=== PATIENT | female | born 1960 | race Caucasian/White ===

== ENCOUNTER 2018-12-28 18:18 | Emergency (ER) | payer OTHER ==
[~2018-12-28] VITALS: Ht 160 cm; Wt 61.2 kg
[~2018-12-28 18:18] MED LIST: ALBU.083IS IH; ALBU90OI INH; ALBU90OI6 INH; AMOX500 PO; ASPI325 PO; ASPI81CH PO; CARV6.25 PO; CEPH500 PO; CRUTCH4 XX; DOXY100 PO; ENTRESTO 24 MG1 EACH; FLUT220OIA; FURO40 PO; HYDACE5 PO; HYDR1TAB94 PO; IBUP200; IBUP400 PO; IBUP600 PO; LOSA50 PO; Norco 5-325 Ta1 EACH PO; OXYACE5T PO; POTCHL10ER PO; Robaxin-750750 MG PO; SPIR25 PO; Ventolin Soln3 ML INH
[2018-12-28] MEDS ORDERED: ALBU90OI61 INH (18:28)
[2018-12-28] MEDS ORDERED: Norco 5-325 Ta1 EACH PO (18:34)
[2018-12-28] MEDS ORDERED: Indomethacin50 MG PO (18:34)
== END 2018-12-28 18:48 | disposition home or self-care (01) ==
LOC: ER 18:18
DX: M10.9 Gout, unspecified (principal); I50.9 Heart failure, unspecified; F17.210 Nicotine dependence, cigarettes, uncomplicated; Z79.899 Other long term (current) drug therapy; Z79.82 Long term (current) use of aspirin
CPT/HCPCS: 99283

== ENCOUNTER 2020-08-02 14:49 | Observation (INO) | payer OTHER ==
[~2020-08-02] VITALS: Ht 160 cm; Wt 60.2 kg
[~2020-08-02 14:49] MED LIST changes: +ALBU90OI61 INH; -ASPI325 PO; +Aspirin EC81 MG PO; +CARV3.125 PO; -CARV6.25 PO; -ENTRESTO 24 MG1 EACH; +ENTRESTO 24 MG1 EACH PO; +Indomethacin50 MG PO
[2020-08-02 15:30] LABS: BASOPHILS ABSOLUTE AUTO 0.06 K/mm3 (0.00-0.23); BASOPHILS PERCENT AUTO 1 % (0-2); EOSINOPHILS ABSOLUTE AUTO 0.21 K/mm3 (0.00-0.68); EOSINOPHILS PERCENT AUTO 3 % (0-6); Hematocrit 43.8 % (33.0-51.0); Hemoglobin 14.4 g/dL (11.5-16.0); IMMATURE GRAN ABSOLUTE AUTO 0.01 K/mm3 (0.00-0.10); IMMATURE GRAN PERCENT AUTO 0 % (0-1); LYMPHOCYTES ABSOLUTE AUTO 2.37 K/mm3 (0.84-5.20); LYMPHOCYTES PERCENT AUTO 39 % (21-46); MONOCYTES ABSOLUTE AUTO 0.65 K/mm3 (0.16-1.47); MONOCYTES PERCENT AUTO 11 % (4-13); Mean Corpuscular HGB 29.8 pg (26.0-34.0); Mean Corpuscular HGB Conc 32.9 g/dL (31.5-36.5); Mean Corpuscular Volume 91 fL (80-100); Mean Platelet Volume 9.8 fL (9.1-12.4); NEUTROPHILS ABSOLUTE AUTO 2.85 K/mm3 (1.96-9.15); NEUTROPHILS PERCENT AUTO 46 % (41-73); Platelet Count 548 K/mm3 (150-400); RDW Coefficient Variation 12.9 % (11.7-14.2); RDW Standard Deviation 42.3 fL (35.1-46.3); Red Blood Cell Count 4.84 M/mm3 (3.80-5.20); White Blood Cell Count 6.15 K/mm3 (4.00-11.30)
[2020-08-02 15:44] LABS: Alanine Aminotransfer (ALT/SGP 37 U/L (12-78); Albumin, Blood 2.8 g/dL (3.4-5.0); Albumin/Globulin Ratio 0.7 (0.8-1.8); Alk Phos 134 U/L (50-136); Anion Gap 8 mmol/L (6-16); Aspartate Aminotrans (AST/SGOT 30 U/L (12-37); Bilirubin, Total 0.2 mg/dL (0.1-1.0); Blood Urea Nitrogen 46 mg/dL (8-24); CO2, Blood 27 mmol/L (21-32); Calcium, Blood 8.4 mg/dL (8.5-10.1); Chloride, Blood 104 mmol/L (98-108); Creatinine, Blood 1.64 mg/dL (0.40-1.00); Globulin, Blood 3.9 g/dL (2.2-4.0); Glomerular Filtration Rate 34 (60-); Glucose, Blood 117 mg/dL (70-99); Potassium, Blood 4.6 mmol/L (3.5-5.5); Sodium, Blood 139 mmol/L (136-145); Total Protein, Blood 6.7 g/dL (6.4-8.2); Troponin I <0.015 ng/mL (0.000-0.040)
[2020-08-02] MEDS ORDERED: LISI5 PO ×2 (15:54→20:20)
[2020-08-02] MEDS ORDERED: ATOR20 PO (15:55)
[2020-08-02] MEDS ORDERED: NITR.4SL SL (15:56)
[2020-08-02 20:23] LABS: U Amphetamine Screen DETECTED; U Barbituate Screen Not Detected; U Benzodiazapine Screen Not Detected; U Buprenorphine Screen Not Detected; U Cannabinoids Screen Not Detected; U Cocaine Screen Not Detected; U Methadone Screen Not Detected; U Methamphetamine Screen DETECTED; U Opiates Screen DETECTED; U Oxycodone Screen Not Detected; U Phencyclidine Screen Not Detected; U Propoxyphene Screen Not Detected
--- NOTE | 2020-08-03 05:51 | NUR ---
SHIFT SUMMARY PT A&O; PT'S SON AT BEDSIDE START OF SHIFT; EDUCATION PROVIDED REGARDING VISITOR GUIDELINES; BP SOFT BUT STABLE; NSR W/ INVERTED T WAVE NOTED ON TELE; DENIES CHEST PAIN; O2 SATS >93 ON RA; INDEPENDENT IN ROOM; PT EDUCATED ON FALL RISK AND CALL LIGHT; NUMEROUS SNACKS ABOUT ROOM; PT APPEARS RESTLESS AND FIGGETY; ANSWERING APPROPRIATELY; PO FLUIDS AND SNACKS BROUGHT TO PT PRN; PT DENIES NEEDS AT THIS TIME; CALL LIGHT IN REACH; BED IN LOWEST POSITION; WILL CONTINUE TO MONITOR CLOSELY UNTIL HAND OFF TO DAY SHIFT RN.
--- NOTE | 2020-08-03 11:53 | NUR ---
echocardiogram completed
--- NOTE | 2020-08-03 14:19 | NUR ---
JOE STARTED. IN THE PROCESS DR. PARISI CANCELLED THE TEST. TO DO ANGIOGRAM DUE TO EF 25%.
--- NOTE | 2020-08-03 14:46 | NUR ---
UPDATE IN THE ROOM TO SPEAK WITH THE PT ABOUT ECHO RESULTS & WHY THE STRESS TEST WAS NOT COMPLETED. PT WAS ALSO INFORMED OF THE PLAN TO TAKE HER TO THE SHEET METAL FABRICATOR IN THE AM. PT IS AWAKE, ALERT & ORIENTED AT THIS TIME. CONSENT FORM WAS LEFT AT THE BED SIDE FOR THE PT TO READ. PT HAS NO QUESTIONS OR NEEDS AT THIS TIME. SHE WOULD LIKE TO SPEAK WITH HER SON REGARDING THE PROCEDURE. PT WILL BE NPO AFTER MIDNIGHT.
--- NOTE | 2020-08-03 18:15 | NUR ---
SUMMARY NO ACUTE CHANGES NOTED THROUGH THE DAY. PT HAS DENIED ANY CP/PRESSURE, VSS, REMAINS ON RA. PT HAD AN ECHO W/CONTRAST DONE PER CARDIOLOGY. SHE WILL BE NPO AFTER MIDNIGHT, PLANNED ANGIO IN THE AM. PT IS TOLERATING PO INTAKE, VOIDING WNL. STAND BY ASSIST DUE TO UNSTEADY GAIT. PT IS ANXIOUS AND IS STARTING TO SHOW MILD SIGNS OF POSSIBLE WITHDRAWL. BED ALARM IS ON FOR SAFETY. PT EDUCATED ON USE OF CALL LIGHT. WCTM & REPORT TO NOC RN. FAMILY AT THE BEDSIDE, CALL LIGHT IN REACH.
[2020-08-04 04:52] LABS: Bun/Creatinine Ratio 29.5 (12.0-20.0); Calcium, Blood 8.1 mg/dL (8.5-10.1); Creatinine, Blood 1.29 mg/dL (0.40-1.00); Potassium, Blood 4.8 mmol/L (3.5-5.5)
--- NOTE | 2020-08-04 06:49 | NUR ---
SHIFT SUMMARY PT A&O; RESTLESS; VSS; NSR NOTED ON TELE; O2 SATS >93 ON RA; SON AT BEDSIDE START OF SHIFT; PT TOOK SHOWER AND WAS VERY WEEPY; SAT ON SHOWER CHAIR CRYING; STATED SHE MISSED HER ; CALL LIGHT IN REACH; BED IN LOWEST POSITION; WILL CONTINUE TO MONITOR UNTIL HAND OFF TO DAY SHIFT RN.
--- NOTE | 2020-08-04 09:08 | NUR ---
MANAGER DATABASE ADMINISTRATION PT TO MANAGER DATABASE ADMINISTRATION. AWAKE,ALERT & ORIENTED.VSS, RESP UNLABORED
[2020-08-04] MEDS ORDERED: ACET325 PO (13:13)
[2020-08-04] MEDS ORDERED: Nicoderm Cq1 EAC1 TOP (13:13)
--- NOTE | 2020-08-04 15:59 | NUR ---
DISCHARGE PT DISCHARGED TO HOME WITH HER SON, PT EDUCATION PROVIDED, VSS, ON RA, PT IS ON RA, RESP UNLABORED, PT DENIED THE NEED FOR A HOME O2 EVALUATION, HER SON AT REQUESTED ONE EARLIER IN THE DAY, CHF/HF,CARDIOMYOPATHY EDUCATION WAS PROVIDED TO THEM BOTH, UNDERSTANDING WAS STATED, PT WAS ENC TO F/U ANDREW FOR ANY PROBLEMS OR CONCERNS. TEGADERM DRSG PLACED TO RIGHT RADIAL ANGIO SITE, NO S/S OF HEMATOMA,BRUISING, OR PAIN NOTED, CIRC WNL. ARM BOARD IN PLACE. PT TAKEN TO PRIVATE VEHICLE BY HER SON PER HER CHOICE.
== END 2020-08-04 15:42 | disposition home or self-care (01) ==
LOC: ER 14:49 → PCU 14:50 → ENPENDDIS 08-04 12:33 → PCU 08-04 15:42
PROVIDERS: Internal Medicine; Physician Assistant; ADMIT Family Medicine
PROC: B201YZZ Plain Radiography of Multiple Coronary Arteries using Other Contrast (ICD-10-PCS; principal; 2020-08-04)
PROC: B206YZZ Plain Radiography of Right and Left Heart using Other Contrast (ICD-10-PCS; principal; 2020-08-04)
PROC: 4A023N8 Measurement of Cardiac Sampling and Pressure, Bilateral, Percutaneous Approach (ICD-10-PCS; principal; 2020-08-04)
DX: R07.9 Chest pain, unspecified (principal); R55 Syncope and collapse; I25.10 Atherosclerotic heart disease of native coronary artery without angina pectoris; I27.20 Pulmonary hypertension, unspecified; I13.0 Hypertensive heart and chronic kidney disease with heart failure and stage 1 through stage 4 chronic kidney disease, or unspecified chronic kidney disease; I50.9 Heart failure, unspecified; N18.9 Chronic kidney disease, unspecified; I95.9 Hypotension, unspecified; I34.0 Nonrheumatic mitral (valve) insufficiency; F15.90 Other stimulant use, unspecified, uncomplicated; F32.9 Major depressive disorder, single episode, unspecified; F17.210 Nicotine dependence, cigarettes, uncomplicated; Z71.6 Tobacco abuse counseling; D47.3 Essential (hemorrhagic) thrombocythemia; M10.9 Gout, unspecified; Z79.82 Long term (current) use of aspirin; Z79.899 Other long term (current) drug therapy; F11.90 Opioid use, unspecified, uncomplicated; I42.0 Dilated cardiomyopathy; N17.9 Acute kidney failure, unspecified
CPT/HCPCS: 36415; 71045; 76937; 78451; 80048; 80053; 83605; 84484; 85025; 85347; 87040; 93005; 93010; 93460; 96360; 99152; 99153; 99285-25; A9270-GY; A9500; C1769; C1894; C8929; G0378; J0280; J1644; J2250; J2785; J3010; J7030; J7050; Q9957; Q9967

== ENCOUNTER 2021-11-23 04:44 | Inpatient (IN) | payer OTHER ==
[~2021-11-23] VITALS: Ht 160 cm; Wt 64.9 kg
[~2021-11-23 04:44] MED LIST changes: +ACET325 PO; +ATOR40TA PO; -CARV3.125 PO; +CARV6.25 PO; +LISI5 PO; +NITR.4SL SL; +Nicoderm Cq1 EAC1 TOP
[2021-11-23 05:03] LABS: BASOPHILS ABSOLUTE AUTO 0.07 K/mm3 (0.00-0.23); BASOPHILS PERCENT AUTO 1 % (0-2); EOSINOPHILS ABSOLUTE AUTO 0.25 K/mm3 (0.00-0.68); EOSINOPHILS PERCENT AUTO 3 % (0-6); Hematocrit 31.8 % (33.0-51.0); Hemoglobin 10.4 g/dL (11.5-16.0); IMMATURE GRAN ABSOLUTE AUTO 0.02 K/mm3 (0.00-0.10); IMMATURE GRAN PERCENT AUTO 0 % (0-1); LYMPHOCYTES ABSOLUTE AUTO 1.57 K/mm3 (0.84-5.20); LYMPHOCYTES PERCENT AUTO 17 % (21-46); MONOCYTES ABSOLUTE AUTO 0.69 K/mm3 (0.16-1.47); MONOCYTES PERCENT AUTO 7 % (4-13); Mean Corpuscular HGB 30.3 pg (26.0-34.0); Mean Corpuscular HGB Conc 32.7 g/dL (31.5-36.5); Mean Corpuscular Volume 93 fL (80-100); NEUTROPHILS PERCENT AUTO 72 % (41-73); Platelet Count 393 K/mm3 (150-400); RDW Coefficient Variation 12.2 % (11.7-14.2); RDW Standard Deviation 41.4 fL (35.1-46.3); Red Blood Cell Count 3.43 M/mm3 (3.80-5.20)
[2021-11-23 05:25] LABS: Alanine Aminotransfer (ALT/SGP 41 U/L (12-78); Albumin, Blood 2.1 g/dL (3.4-5.0); Albumin/Globulin Ratio 0.5 (0.8-1.8); Alk Phos 204 U/L (50-136); Anion Gap 8 mmol/L (6-16); Aspartate Aminotrans (AST/SGOT 43 U/L (12-37); Bilirubin, Total 0.2 mg/dL (0.1-1.0); Blood Urea Nitrogen 54 mg/dL (8-24); Bun/Creatinine Ratio 19.4 (12.0-20.0); CO2, Blood 24 mmol/L (21-32); Calcium, Blood 8.2 mg/dL (8.5-10.1); Chloride, Blood 108 mmol/L (98-108); Creatinine, Blood 2.79 mg/dL (0.40-1.00); Globulin, Blood 4.5 g/dL (2.2-4.0); Glomerular Filtration Rate 17 (60-); Glucose, Blood 106 mg/dL (70-99); Potassium, Blood 4.9 mmol/L (3.5-5.5); Sodium, Blood 140 mmol/L (136-145); Total Protein, Blood 6.6 g/dL (6.4-8.2); Troponin I <0.015 ng/mL (0.000-0.040)
[2021-11-23 06:42] LABS: Influenza A, PCR NEGATIVE (NEGATIVE); Influenza B, PCR NEGATIVE (NEGATIVE); Resp Syncytial Virus, PCR NEGATIVE (NEGATIVE); SARS-Cov-2 (COVID-19) PCR, MMC NEGATIVE (NEGATIVE)
--- NOTE | 2021-11-23 14:22 | NUR ---
PT ARRIVED TO THE MEDICAL FLOOR FROM THE ER VIA GURGENA. Anam/OX3, COOPERATIVE. THE PT WAS ORIENTED TO THE ROOM LAYOUT AND CALL SYSTEM. PT IS HIGHLY ANXIOUS AT THIS TIME WAS UP TO THE BATHROOM. STATES THAT SHE FEELS HER SKIN IS CRAWLING AND AT THIS TIME IS TAKEING A SHOWER
[2021-11-23] MEDS ORDERED: SPIRIVA RESPIMAT4 G2 INH (15:33)
[2021-11-23 16:20] LABS: Source, Urine Clean Catch
[2021-11-23 16:25] LABS: Appearance, Urine Hazy (Clear); Bilirubin, Urine Neg (Neg); Blood, Urine 5+ (Neg); Color, Urine Yellow (P-Yellow); Glucose Qualitative, Urine Neg (Neg); Ketones, Urine Neg (Neg); Leukocyte Esterase, Urine 3+ (Neg); Nitrite, Urine Neg (Neg); Protein, Urine 4+ (Neg); Urobilinogen, Urine NORM (Normal)
[2021-11-23 16:32] LABS: Red Blood Cells, Urine TNTC /hpf (0-2); White Blood Cells, Urine TNTC /hpf (0-5)
[2021-11-23 16:35] LABS: Squamous Epithelial Cells Few /hpf (Few)
[2021-11-23 16:37] LABS: Bacteria Many /hpf
[2021-11-23 16:39] LABS: U Amphetamine Screen DETECTED; U Barbituate Screen Not Detected; U Benzodiazapine Screen Not Detected; U Buprenorphine Screen Not Detected; U Cannabinoids Screen Not Detected; U Cocaine Screen Not Detected; U Methadone Screen Not Detected; U Methamphetamine Screen DETECTED; U Opiates Screen Not Detected; U Oxycodone Screen DETECTED; U Phencyclidine Screen Not Detected; U Propoxyphene Screen Not Detected
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
--- NOTE | 2021-11-23 17:25 | NUR ---
PT PULLED IV SAID SHE WANTED IN ANOTHER PLACE THEN BECAME HYSTERICAL WITH THE IV START. IV IS IN THE RIGHT FA AND HAS GOOD BLOOD RETURN.
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
== END 2021-11-24 02:25 | disposition left against medical advice (07) | DRG 193 ==
LOC: ER 04:44 → ERHOLD 06:02 → MEDS 13:50
PROVIDERS: Student in an Organized Health Care Education/Training Program; ADMIT Internal Medicine
PROC: 5A09357 Assistance with Respiratory Ventilation, Less than 24 Consecutive Hours, Continuous Positive Airway Pressure (ICD-10-PCS; principal; 2021-11-23)
DX: J18.9 Pneumonia, unspecified organism (principal); J96.01 Acute respiratory failure with hypoxia; J44.0 Chronic obstructive pulmonary disease with (acute) lower respiratory infection; J44.1 Chronic obstructive pulmonary disease with (acute) exacerbation; N17.9 Acute kidney failure, unspecified; I50.22 Chronic systolic (congestive) heart failure; Z20.822 Contact with and (suspected) exposure to COVID-19; M10.9 Gout, unspecified; N18.30 Chronic kidney disease, stage 3 unspecified; F15.10 Other stimulant abuse, uncomplicated; Z71.6 Tobacco abuse counseling; F17.210 Nicotine dependence, cigarettes, uncomplicated; Z79.82 Long term (current) use of aspirin; Z79.899 Other long term (current) drug therapy; Z90.89 Acquired absence of other organs; Z98.51 Tubal ligation status
CPT/HCPCS: 0241U; 36415; 71045; 80053; 81001; 83880; 84145; 84484; 85025; 85379; 87086; 93005; 93010; 94640; 94644; 94660; 94760; 96365; 96366; 96372; 99285-25; A9270; J0456; J0696; J1644; J1956; J2930; J7050

== ENCOUNTER 2021-11-24 23:56 | Inpatient (IN) | payer OTHER ==
[~2021-11-24] VITALS: Ht 160 cm; Wt 70.9 kg
[~2021-11-24 23:56] MED LIST changes: +SPIRIVA RESPIMAT4 G2 INH
[2021-11-25 00:34] LABS: BASOPHILS ABSOLUTE AUTO 0.04 K/mm3 (0.00-0.23); BASOPHILS PERCENT AUTO 0 % (0-2); EOSINOPHILS ABSOLUTE AUTO 0.01 K/mm3 (0.00-0.68); EOSINOPHILS PERCENT AUTO 0 % (0-6); Hematocrit 33.6 % (33.0-51.0); Hemoglobin 10.6 g/dL (11.5-16.0); IMMATURE GRAN ABSOLUTE AUTO 0.06 K/mm3 (0.00-0.10); IMMATURE GRAN PERCENT AUTO 0 % (0-1); LYMPHOCYTES ABSOLUTE AUTO 1.98 K/mm3 (0.84-5.20); LYMPHOCYTES PERCENT AUTO 12 % (21-46); MONOCYTES ABSOLUTE AUTO 1.56 K/mm3 (0.16-1.47); MONOCYTES PERCENT AUTO 9 % (4-13); Mean Corpuscular HGB 29.4 pg (26.0-34.0); Mean Corpuscular HGB Conc 31.5 g/dL (31.5-36.5); Mean Corpuscular Volume 93 fL (80-100); Mean Platelet Volume 10.1 fL (9.1-12.4); NEUTROPHILS ABSOLUTE AUTO 13.06 K/mm3 (1.96-9.15); NEUTROPHILS PERCENT AUTO 78 % (41-73); Platelet Count 500 K/mm3 (150-400); RDW Coefficient Variation 12.6 % (11.7-14.2); RDW Standard Deviation 43.6 fL (35.1-46.3); White Blood Cell Count 16.71 K/mm3 (4.00-11.30)
[2021-11-25 00:48] LABS: Bun/Creatinine Ratio 23.9 (12.0-20.0); Calcium, Blood 8.4 mg/dL (8.5-10.1); Creatinine, Blood 3.27 mg/dL (0.40-1.00); Potassium, Blood 5.2 mmol/L (3.5-5.5)
[2021-11-25 05:22] LABS: BASOPHILS ABSOLUTE AUTO 0.02 K/mm3 (0.00-0.23); BASOPHILS PERCENT AUTO 0 % (0-2); EOSINOPHILS PERCENT AUTO 0 % (0-6); Hematocrit 30.5 % (33.0-51.0); Hemoglobin 9.7 g/dL (11.5-16.0); IMMATURE GRAN ABSOLUTE AUTO 0.05 K/mm3 (0.00-0.10); IMMATURE GRAN PERCENT AUTO 0 % (0-1); LYMPHOCYTES ABSOLUTE AUTO 0.88 K/mm3 (0.84-5.20); LYMPHOCYTES PERCENT AUTO 8 % (21-46); MONOCYTES ABSOLUTE AUTO 1.14 K/mm3 (0.16-1.47); MONOCYTES PERCENT AUTO 10 % (4-13); Mean Corpuscular HGB 29.8 pg (26.0-34.0); Mean Corpuscular HGB Conc 31.8 g/dL (31.5-36.5); Mean Corpuscular Volume 94 fL (80-100); Mean Platelet Volume 10.2 fL (9.1-12.4); NEUTROPHILS ABSOLUTE AUTO 9.05 K/mm3 (1.96-9.15); NEUTROPHILS PERCENT AUTO 81 % (41-73); Platelet Count 388 K/mm3 (150-400); RDW Coefficient Variation 12.7 % (11.7-14.2); RDW Standard Deviation 43.9 fL (35.1-46.3); Red Blood Cell Count 3.26 M/mm3 (3.80-5.20); White Blood Cell Count 11.14 K/mm3 (4.00-11.30)
[2021-11-25 05:46] LABS: Albumin, Blood 2.1 g/dL (3.4-5.0); Albumin/Globulin Ratio 0.5 (0.8-1.8); Bilirubin, Total 0.2 mg/dL (0.1-1.0); Bun/Creatinine Ratio 22.9 (12.0-20.0); Calcium, Blood 8.1 mg/dL (8.5-10.1); Creatinine, Blood 3.15 mg/dL (0.40-1.00); Globulin, Blood 4.2 g/dL (2.2-4.0); Potassium, Blood 5.6 mmol/L (3.5-5.5); Total Protein, Blood 6.3 g/dL (6.4-8.2)
--- NOTE | 2021-11-25 06:09 | NUR ---
PT IS ALERT AND ORIENTED X4. DENIES PAIN. LUNGS ARE DIMINISHED WITH WHEEZING AND CRACKLES BILATERAL. HAS COUGH AND SPUTUM THIN AND WHITE STATED BY THE PT. SKIN IS CDI. VOIDED IN ER. 2L 02. UP AD ETHAN. LIVES WITH BROTHER IN LAW. IVF NS AT 100ML/HR. PT IS NOW SLEEPING. PT HAS BEEN CALM.
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
[2021-11-25 12:25] LABS: Source, Urine Catheter
[2021-11-25 12:58] LABS: Appearance, Urine Clear (Clear); Bilirubin, Urine Neg (Neg); Blood, Urine 5+ (Neg); Color, Urine Yellow (P-Yellow); Glucose Qualitative, Urine Neg (Neg); Ketones, Urine Neg (Neg); Leukocyte Esterase, Urine 3+ (Neg); Nitrite, Urine Neg (Neg); Protein, Urine 4+ (Neg); Urobilinogen, Urine NORM (Normal)
[2021-11-25 13:16] LABS: Bacteria Few /hpf; Red Blood Cells, Urine 25-50 /hpf (0-2); Squamous Epithelial Cells Few /hpf (Few)
[2021-11-25 13:17] LABS: Amorphous Mod (0-Heavy); Mucus Light (0-Heavy); Yeast/Fungi Urine Rare /hpf
[2021-11-25 14:12] LABS: Uric Acid, Blood 8.6 mg/dL (2.6-6.0)
--- NOTE | 2021-11-25 14:15 | NUR ---
PT'S DAUGHTER AT THE BEDSIDE FOR SUPPORT. SHE REQUESTED AN UPDATE FROM DR. WANG. DR. WANG WAS CONTACTED AND NOTIFIED THE DAUGHTER IS AT THE BEDSIDE. WILL CONTINUE TO MONITOR.
[2021-11-25 14:16] LABS: Thyroid Stimulating Hormone 0.373 uIU/mL (0.360-4.800)
--- NOTE | 2021-11-25 14:35 | NUR ---
DR. WANG AND SPOKE WITH PT AND DAUGHTER REGARDING PLAN OF CARE.
[2021-11-25 14:47] LABS: Bun/Creatinine Ratio 22.5 (12.0-20.0); Calcium, Blood 7.5 mg/dL (8.5-10.1); Creatinine, Blood 3.24 mg/dL (0.40-1.00); Potassium, Blood 6.3 mmol/L (3.5-5.5)
--- NOTE | 2021-11-25 16:52 | NUR ---
PT COMPLAINING OF RUQ ABD PAIN. WILL CONTINUE TO MONITOR.
--- NOTE | 2021-11-25 18:14 | NUR ---
SHIFT SUMMARY PT HAS BEEN A SBA WHEN OOB THIS SHIFT. SHE REMAINS ON 2LO2 VIA NC. SOME SHORTNESS OF BREATH WITH ACTIVITY. PT COMPLAINED OF RUQ PAIN X1 THIS EVENING, IT RESOLVED WITHOUT NEED FOR MEDICATION. PT'S DAUGHTER WAS AT THE BEDSIDE FOR SUPPORT. SHE ALSO REPORTED THAT PT USES HEROIN IN ADDITION TO METH AND REQUESTED SABOXONE FOR WITHDRAWAL SYMPTOMS; PLAN TO DISCUSS WITH DR. WANG AT THE NEXT OPPORTUNITY. WILL CONTINUE TO MONITOR UNTIL REPORT TO JUDY FRANK.
--- NOTE | 2021-11-26 03:48 | NUR ---
SUMMARY PT C/O ANXIETY TONIGHT AND REQUESTED XANAX, DR KEE GAVE ORDER FOR HYDROYZINE. HYDROXYZINE WAS GIVEN, AND PT VERB "SOME "IMPROVEMENT.PT ALLOWED ME TO PLACE SCDS BILAT CALF.SCHEDULED TO START LOVENOX IN AM.
[2021-11-26 04:45] LABS: BASOPHILS ABSOLUTE AUTO 0.01 K/mm3 (0.00-0.23); BASOPHILS PERCENT AUTO 0 % (0-2); EOSINOPHILS PERCENT AUTO 0 % (0-6); Hemoglobin 9.8 g/dL (11.5-16.0); IMMATURE GRAN ABSOLUTE AUTO 0.04 K/mm3 (0.00-0.10); IMMATURE GRAN PERCENT AUTO 0 % (0-1); LYMPHOCYTES ABSOLUTE AUTO 0.47 K/mm3 (0.84-5.20); LYMPHOCYTES PERCENT AUTO 5 % (21-46); MONOCYTES ABSOLUTE AUTO 0.17 K/mm3 (0.16-1.47); MONOCYTES PERCENT AUTO 2 % (4-13); Mean Corpuscular HGB 29.3 pg (26.0-34.0); Mean Corpuscular HGB Conc 31.6 g/dL (31.5-36.5); Mean Corpuscular Volume 93 fL (80-100); Mean Platelet Volume 10.6 fL (9.1-12.4); NEUTROPHILS PERCENT AUTO 93 % (41-73); Platelet Count 305 K/mm3 (150-400); RDW Coefficient Variation 12.7 % (11.7-14.2); RDW Standard Deviation 43.2 fL (35.1-46.3); Red Blood Cell Count 3.34 M/mm3 (3.80-5.20); White Blood Cell Count 10.19 K/mm3 (4.00-11.30)
[2021-11-26 05:50] LABS: Albumin, Blood 1.9 g/dL (3.4-5.0); Albumin/Globulin Ratio 0.5 (0.8-1.8); Bilirubin, Total 0.2 mg/dL (0.1-1.0); Bun/Creatinine Ratio 24.2 (12.0-20.0); Calcium, Blood 7.6 mg/dL (8.5-10.1); Creatinine, Blood 3.35 mg/dL (0.40-1.00); Globulin, Blood 3.8 g/dL (2.2-4.0); Total Protein, Blood 5.7 g/dL (6.4-8.2)
--- NOTE | 2021-11-26 07:47 | NUR ---
PT HAD CRITICAL POTASSIUM 6.0. CALLED DR KEE AND RECEIVED ORDERS. RAYRAY FRANK CALLED CALCIUM LEVEL.SEE ORDERS.MEDS GIVEN PER ORDERS.
[2021-11-26 12:23] LABS: Potassium, Blood 5.6 mmol/L (3.5-5.5)
--- NOTE | 2021-11-26 14:22 | NUR ---
PT IS RESTING IN BED AT THIS TIME. SHE APPEARS TO SLEEP MOST OF THE DAY. SPIRITUAL CARE IN TO SEE PT. DR. PEARL CONSULTED. WILL CONTINUE TO MONITOR.
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
--- NOTE | 2021-11-26 14:45 | NUR ---
SPOKE WITH PT'S DAUGHTER WITH PT PERMISSION.
--- NOTE | 2021-11-26 18:37 | NUR ---
SHIFT SUMMARY PT REMAINS IN THE HOSPITAL FOR ABX, SHE IS ALSO BEING SEEN BY DR. PEARL FOR ACUTE RENAL FAILURE. PT HAS RESTED MOST OF THE DAY, SHE REPORTS GETTING LIMITED SLEEP AT NIGHT R/T NIGHTMARES. IV FLUIDS STARTED PER DR. PEARL. PT IS TOLERATING A RENAL DIET. SHE IS A SBA WHILE IN THE ROOM AND SAT UP TO THE CHAIR SOME OF THE DAY. VSS. WILL MONITOR UNTIL NOC RN.
[2021-11-27 06:30] LABS: BASOPHILS ABSOLUTE AUTO 0.01 K/mm3 (0.00-0.23); BASOPHILS PERCENT AUTO 0 % (0-2); EOSINOPHILS PERCENT AUTO 0 % (0-6); Hematocrit 27.9 % (33.0-51.0); Hemoglobin 9.1 g/dL (11.5-16.0); IMMATURE GRAN ABSOLUTE AUTO 0.06 K/mm3 (0.00-0.10); IMMATURE GRAN PERCENT AUTO 1 % (0-1); LYMPHOCYTES ABSOLUTE AUTO 0.55 K/mm3 (0.84-5.20); LYMPHOCYTES PERCENT AUTO 5 % (21-46); MONOCYTES ABSOLUTE AUTO 0.36 K/mm3 (0.16-1.47); MONOCYTES PERCENT AUTO 3 % (4-13); Mean Corpuscular HGB 29.9 pg (26.0-34.0); Mean Corpuscular HGB Conc 32.6 g/dL (31.5-36.5); Mean Corpuscular Volume 92 fL (80-100); Mean Platelet Volume 10.5 fL (9.1-12.4); NEUTROPHILS ABSOLUTE AUTO 10.67 K/mm3 (1.96-9.15); NEUTROPHILS PERCENT AUTO 92 % (41-73); Platelet Count 365 K/mm3 (150-400); RDW Coefficient Variation 12.8 % (11.7-14.2); RDW Standard Deviation 42.8 fL (35.1-46.3); Red Blood Cell Count 3.04 M/mm3 (3.80-5.20); White Blood Cell Count 11.65 K/mm3 (4.00-11.30)
[2021-11-27 07:09] LABS: HBSAG SCREEN Negative (Negative); HEP A AB, IGM Negative (Negative); HEP B CORE AB, IGM Negative (Negative); HEP C VIRUS AB <0.1 (0.0-0.9)
[2021-11-27 07:23] LABS: Albumin/Globulin Ratio 0.5 (0.8-1.8); Bilirubin, Total 0.2 mg/dL (0.1-1.0); Bun/Creatinine Ratio 29.3 (12.0-20.0); Calcium, Blood 7.8 mg/dL (8.5-10.1); Creatinine, Blood 2.9 mg/dL (0.40-1.00); Globulin, Blood 3.8 g/dL (2.2-4.0); Magnesium, Blood 1.9 mg/dL (1.6-2.4); Phosphorus, Blood 5.5 mg/dL (2.5-4.9); Potassium, Blood 5.1 mmol/L (3.5-5.5); Total Protein, Blood 5.8 g/dL (6.4-8.2)
--- NOTE | 2021-11-27 08:38 | NUR ---
SUMMARY PT ANXIOUS TONIGHT.FIDGETY.FORGETFUL OF LINES AND HAYS. DAY RN AGREES TO QUESTION REGARDING CONTINUED HAYS DURING DR ROUNDING. POTASSIUM STABLE THIS AM.GAVE VISTARIL X 1 WHICH SEEMED TO CALM PT SOME.PT LAST BM 11/24 DOCUMENTE. DUE TO RENAL STATUS, UNABLE TO HAVE PRUNE JUICE AND PT ANXIOUS OVER NEED OF BM. DAY RN AGREES TO FOLLOW UP.
--- NOTE | 2021-11-27 17:14 | NUR ---
SHIFT SUMMARY PATIENT ALERT WHEN AWAKE. RESTED AND SLEPT MOST OF SHIFT. TOLERATING RENAL DIET AND FLUIDS. SAÚL MANCERA'Ade THIS SHIFT. VOIDING ON COMMODE. REPORTED HEART BURN AND HEADACHE. MEDICATED WITH PRILOSEC AND TYLENOL. NON-PRODUCTIVE COUGH, LUNGS DIM THROUGHOUT. IF FLUID RUNNING. WILL REPORT TO ALMOND GRINDER RN.
--- NOTE | 2021-11-28 04:23 | NUR ---
SHIFT SUMMARY PT A/O X4 BUT VERY SLEEPY THIS SHIFT, AND APPEARS AGGITATED WHEN AWAKE. STATES SHE IS HAVING A HARD TIME HAVING A BOWEL MOVEMENT, TREATED PER EMAR WITH STOOL SOFTENERS AND GIVEN PRUNE JUICE. AMBULATING WELL WITH STAND BY ASSIST. VOIDING WELL. VITAL SIGNS STABLE. CRACKLES IN LUNGS BILATERALLY, OXYGEN SATURATION MANTAINING WITH RA. WILL CONTINUE TO MONITOR AND REPORT TO ONCOMING RN.
[2021-11-28 04:53] LABS: Hematocrit 28.4 % (33.0-51.0); Hemoglobin 9.1 g/dL (11.5-16.0)
[2021-11-28 05:51] LABS: Anion Gap 13 mmol/L (6-16); Blood Urea Nitrogen 88 mg/dL (8-24); Bun/Creatinine Ratio 33.2 (12.0-20.0); CO2, Blood 17 mmol/L (21-32); Calcium, Blood 7.6 mg/dL (8.5-10.1); Chloride, Blood 108 mmol/L (98-108); Creatinine, Blood 2.65 mg/dL (0.40-1.00); Glomerular Filtration Rate 18 (60-); Glucose, Blood 212 mg/dL (70-99); Magnesium, Blood 1.9 mg/dL (1.6-2.4); Phosphorus, Blood 5.8 mg/dL (2.5-4.9); Potassium, Blood 5.2 mmol/L (3.5-5.5); Sodium, Blood 138 mmol/L (136-145)
[2021-11-28 08:48] LABS: Albumin/Globulin Ratio 0.6 (0.8-1.8); Bilirubin, Direct 0.1 mg/dL (0.0-0.3); Bilirubin, Indirect 0.1 mg/dL (0.1-0.7); Bilirubin, Total 0.2 mg/dL (0.1-1.0); Globulin, Blood 3.6 g/dL (2.2-4.0); Total Protein, Blood 5.6 g/dL (6.4-8.2)
--- NOTE | 2021-11-28 10:08 | NUR ---
0900 PT CURSING THIS RN ENTERS ROOM STATES SHE NEEDS AN ENEMA AND NO ONE IS LISTENING TO HER, DR PEARL IN ROOM AND ORDERS RECEIVED FOR BOWEL CARE
--- NOTE | 2021-11-28 11:56 | NUR ---
0950 PT LYING FLAT IN BED WITH EYES CLOSED. RESP RATE 18
--- NOTE | 2021-11-28 13:54 | NUR ---
1320 PT REMAINS IN SHOWER SINCE 1245 OPENED DOOR TO CHECK ON PATIENT, PATIENT ANSWERS QUESTIONS APPROPRIATELY AND STATES SHE IS FINE. PT HAS PURSE SITTING JUST OUTSIDE OF SHOWER
--- NOTE | 2021-11-28 13:55 | NUR ---
1340 PT REMAINS IN SHOWER, WHEN CHECKED ON PATIENT SHOWER IS RUNNING AND PATIENT IS SITTING ON TOILET DABBING NOSE WITH KLEENEX. PT STATES SHE IS FINE, DR WANG HERE TO SEE PATIENT AND SPOKE WITH PATIENT WHILE SHE WAS SITTING IN BATHROOM. PT THEN RETURNED TO BED AND DR WANG SPEAKING WITH PATIENT
--- NOTE | 2021-11-28 17:10 | NUR ---
PT DOZING THROUGHOUT AFTERNOON,DENIES SOB. PT HAS DECLINED FOOD TRAYS HAS BAG OF SNACKS WITH COOKIES, CHIPS AND POPCORN AT BEDSIDE AND HAD A FRIEND BRING IN A SECOND SACK OF SNACK FOOD. PT WITH FORMED FORMED STOOLS X3 AND REPORTS STOMACH FEELS MUCH BETTER.
[2021-11-29 05:06] LABS: BASOPHILS ABSOLUTE AUTO 0.01 K/mm3 (0.00-0.23); BASOPHILS PERCENT AUTO 0 % (0-2); EOSINOPHILS PERCENT AUTO 0 % (0-6); Hematocrit 29.7 % (33.0-51.0); Hemoglobin 9.7 g/dL (11.5-16.0); IMMATURE GRAN ABSOLUTE AUTO 0.17 K/mm3 (0.00-0.10); IMMATURE GRAN PERCENT AUTO 2 % (0-1); LYMPHOCYTES ABSOLUTE AUTO 0.79 K/mm3 (0.84-5.20); LYMPHOCYTES PERCENT AUTO 8 % (21-46); MONOCYTES PERCENT AUTO 5 % (4-13); Mean Corpuscular HGB 29.8 pg (26.0-34.0); Mean Corpuscular HGB Conc 32.7 g/dL (31.5-36.5); Mean Corpuscular Volume 91 fL (80-100); Mean Platelet Volume 10.9 fL (9.1-12.4); NEUTROPHILS ABSOLUTE AUTO 8.18 K/mm3 (1.96-9.15); NEUTROPHILS PERCENT AUTO 85 % (41-73); NRBC ABSOLUTE 0.02 K/mm3 (0.00-0.02); NRBC Auto 0.2 /100 WBC (0.0-0.2); Platelet Count 380 K/mm3 (150-400); RDW Coefficient Variation 13.2 % (11.7-14.2); RDW Standard Deviation 43.8 fL (35.1-46.3); Red Blood Cell Count 3.26 M/mm3 (3.80-5.20); White Blood Cell Count 9.65 K/mm3 (4.00-11.30)
[2021-11-29 06:08] LABS: Albumin, Blood 2.1 g/dL (3.4-5.0); Albumin/Globulin Ratio 0.6 (0.8-1.8); Bilirubin, Total 0.2 mg/dL (0.1-1.0); Bun/Creatinine Ratio 35.6 (12.0-20.0); Calcium, Blood 7.8 mg/dL (8.5-10.1); Creatinine, Blood 2.78 mg/dL (0.40-1.00); Globulin, Blood 3.6 g/dL (2.2-4.0); Potassium, Blood 6.1 mmol/L (3.5-5.5); Total Protein, Blood 5.7 g/dL (6.4-8.2)
--- NOTE | 2021-11-29 07:24 | NUR ---
LAB CALLED WITH ELEVATED K LEVEL, DR PEARL NOTIFIED. THE ORDERED BUMEX 2MG IV, SODIUM BICARB 1 AMP ALL X1 AND RECHECK POTASSIUM LEVEL IN 2 HRS POST TREATMENT. ALL ORDERS NOTED, CALL PLACED TO LAB TO COME CHECK BLOOD POTASSIUM LEVEL IN 2HRS. PT MADE AWARE OF CONDITION AND TREATMENT.
--- NOTE | 2021-11-29 12:01 | NUR ---
PATIENT LEFT THE FLOOR AT APPROXIMATELY 1100 TODAY TO GET FRESH AIR. PATIENT INSTRUCTED SHE WAS NOT TO SMOKE SHE HAS A NICOTINE PATCH ON, SHE VERBALIZED UNDERSTANDING. PATIENT WAS SEEN EXITING THE BUILDING IN WHEELCHAIR BY MECHANICAL APPLICATIONS ENGINEER. THIS NURSE AND CHARGE WENT LOOKING FOR PATIENT. NOTIFIED OPHTHALMIC AIDE AND SECURITY, THEY ARE LOOKING ON CAMERAS.
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
[2021-11-29] MEDS ORDERED: SODBIC650 PO (13:15)
[2021-11-29] MEDS ORDERED: VISBIOME 112.51 EACH PO (13:16)
[2021-11-29] MEDS ORDERED: LEVO750 PO (13:17)
[2021-11-29] MEDS ORDERED: LOKELMA (13:19)
--- NOTE | 2021-11-29 13:28 | NUR ---
DISCHARGE: DISCHARGE INSTUCTIONS GIVEN TO PATIENT AT THIS TIME. INSTUCTED PATIENT TO FOLLOW UP WITH DR PEARL TOMORROW, APPOINTMENT IS SET. FOLLOW UP WITH PCP IN ON WEEK. PRESCRIPTIONS SENT TO [facility] WITH CONFIRMATION RECIEVED. INSTUCTED PATIENT TO NOT DO DRUGS THIS IS HURTING HER HEART/LIVER/KIDNEYS. PATIENT VERBALIZED UNDERSTANDING OF DISCHARGE INSTRUCTIONS. NO SIGNS OR SYMPTOMS ACUTE DISTRESS NOTED.
== END 2021-11-29 13:46 | disposition home or self-care (01) | DRG 871 ==
LOC: ER 23:56 → SURS 23:57 → MEDS 23:57 → SURS 11-25 04:35
PROVIDERS: Family Medicine; Internal Medicine; Internal Medicine Nephrology; Student in an Organized Health Care Education/Training Program; ADMIT Internal Medicine
DX: A41.9 Sepsis, unspecified organism (principal); J18.9 Pneumonia, unspecified organism; J96.01 Acute respiratory failure with hypoxia; N17.9 Acute kidney failure, unspecified; J44.1 Chronic obstructive pulmonary disease with (acute) exacerbation; I50.22 Chronic systolic (congestive) heart failure; N18.4 Chronic kidney disease, stage 4 (severe); E87.2 Acidosis; J44.0 Chronic obstructive pulmonary disease with (acute) lower respiratory infection; E87.5 Hyperkalemia; R94.5 Abnormal results of liver function studies; Z71.51 Drug abuse counseling and surveillance of drug abuser; Z98.51 Tubal ligation status; Z98.890 Other specified postprocedural states; F17.210 Nicotine dependence, cigarettes, uncomplicated; F15.10 Other stimulant abuse, uncomplicated; F11.10 Opioid abuse, uncomplicated; F12.10 Cannabis abuse, uncomplicated; Z79.899 Other long term (current) drug therapy; Z79.82 Long term (current) use of aspirin; D64.9 Anemia, unspecified; M10.9 Gout, unspecified; R65.20 Severe sepsis without septic shock; F41.9 Anxiety disorder, unspecified; E88.09 Other disorders of plasma-protein metabolism, not elsewhere classified; Z53.29 Procedure and treatment not carried out because of patient's decision for other reasons
CPT/HCPCS: 36415; 71045; 71250; 74176; 76700; 80048; 80053; 80069; 80074; 80076; 81001; 82248; 82374; 82947; 83605; 83735; 84100; 84132; 84443; 84550; 85014; 85018; 85025; 87040; 87086; 94640; 94760; 96372; 97110; 97116; 97161; 99285-25; A9270; G0378; G0480; J0610; J0881; J1650; J1815; J1940; J1956; J2930; J7030; J7120; Q0177

== ENCOUNTER → 2022-03-23 | Outpatient (CLI) | payer OTHER ==
[~2022-03-23] MED LIST changes: +LEVO750 PO; +LOKELMA; +SODBIC650 PO; +VISBIOME 112.51 EACH PO
[2022-03-23 19:36] LABS: Protein, Urine Quantitative 242.7 mg/dL (0.0-11.9)
== END | disposition home or self-care (01) ==
LOC: LAB 14:00 → LAB SHORT 14:00 → LAB FUT 02-03 11:15
PROVIDERS: Internal Medicine Nephrology
DX: N18.4 Chronic kidney disease, stage 4 (severe) (principal); D63.1 Anemia in chronic kidney disease; R76.9 Abnormal immunological finding in serum, unspecified; R94.5 Abnormal results of liver function studies; R94.6 Abnormal results of thyroid function studies
CPT/HCPCS: 81050; 82043; 82570; 84156

== ENCOUNTER 2022-10-07 16:31 | Inpatient (IN) | payer OTHER ==
[~2022-10-07] VITALS: Ht 170.2 cm; Wt 59.4 kg
[2022-10-07 16:54] LABS: Base Excess Venous -2.1 mmol/L; Bicarbonate Venous 21.7 mmol/L (24.0-30.0); PCO2 Venous 56.8 mmHg (38-42); pH Blood Venous 7.25 (7.34-7.37)
[2022-10-07 17:06] LABS: BASOPHILS ABSOLUTE AUTO 0.08 K/mm3 (0.00-0.23); BASOPHILS PERCENT AUTO 1 % (0-2); EOSINOPHILS ABSOLUTE AUTO 0.55 K/mm3 (0.00-0.68); EOSINOPHILS PERCENT AUTO 4 % (0-6); Hematocrit 40.4 % (33.0-51.0); Hemoglobin 13.1 g/dL (11.5-16.0); IMMATURE GRAN ABSOLUTE AUTO 0.03 K/mm3 (0.00-0.10); IMMATURE GRAN PERCENT AUTO 0 % (0-1); LYMPHOCYTES ABSOLUTE AUTO 3.54 K/mm3 (0.84-5.20); LYMPHOCYTES PERCENT AUTO 28 % (21-46); MONOCYTES ABSOLUTE AUTO 0.72 K/mm3 (0.16-1.47); MONOCYTES PERCENT AUTO 6 % (4-13); Mean Corpuscular HGB 29.8 pg (26.0-34.0); Mean Corpuscular HGB Conc 32.4 g/dL (31.5-36.5); Mean Corpuscular Volume 92 fL (80-100); Mean Platelet Volume 9.7 fL (9.1-12.4); NEUTROPHILS ABSOLUTE AUTO 7.61 K/mm3 (1.96-9.15); NEUTROPHILS PERCENT AUTO 61 % (41-73); Platelet Count 503 K/mm3 (150-400); RDW Coefficient Variation 12.7 % (11.7-14.2); RDW Standard Deviation 42.8 fL (35.1-46.3); White Blood Cell Count 12.53 K/mm3 (4.00-11.30)
[2022-10-07 17:17] LABS: Source, Urine Clean Catch
[2022-10-07 17:38] LABS: Appearance, Urine Cloudy (Clear); Bilirubin, Urine Neg (Neg); Blood, Urine 5+ (Neg); Color, Urine Yellow (P-Yellow); Glucose Qualitative, Urine Neg (Neg); Ketones, Urine Neg (Neg); Leukocyte Esterase, Urine 2+ (Neg); Nitrite, Urine Neg (Neg); Protein, Urine 4+ (Neg); Specific Gravity, Urine 1.015 (1.003-1.022); Urobilinogen, Urine NORM (Normal)
[2022-10-07 17:57] LABS: Albumin, Blood 2.9 g/dL (3.4-5.0); Albumin/Globulin Ratio 0.7 (0.8-1.8); Bilirubin, Total 0.4 mg/dL (0.1-1.0); Bun/Creatinine Ratio 24.2 (12.0-20.0); Calcium, Blood 9.2 mg/dL (8.5-10.1); Creatinine, Blood 1.53 mg/dL (0.40-1.00); Globulin, Blood 4.2 g/dL (2.2-4.0); Potassium, Blood 4.1 mmol/L (3.5-5.5); Total Protein, Blood 7.1 g/dL (6.4-8.2)
[2022-10-07 18:16] LABS: Granular Casts 0-2 /lpf (0)
[2022-10-07 18:17] LABS: Bacteria Few /hpf; Renal Epithelial Few /hpf (0-Rare); Squamous Epithelial Cells Mod /hpf (Few); White Blood Cells, Urine 25-50 /hpf (0-5)
[2022-10-07 18:19] LABS: Influenza A, PCR NEGATIVE (NEGATIVE); Influenza B, PCR NEGATIVE (NEGATIVE); Resp Syncytial Virus, PCR NEGATIVE (NEGATIVE); SARS-Cov-2 (COVID-19) PCR, MMC NEGATIVE (NEGATIVE)
[2022-10-07] MEDS ORDERED: LOSA25 PO (18:50)
[2022-10-07] MEDS ORDERED: CALC.25 PO (18:50)
[2022-10-07] MEDS ORDERED: BUME2 PO (18:50)
[2022-10-07 23:33] LABS: U Amphetamine Screen DETECTED; U Barbituate Screen Not Detected; U Benzodiazapine Screen Not Detected; U Buprenorphine Screen Not Detected; U Cannabinoids Screen DETECTED; U Cocaine Screen Not Detected; U Methadone Screen Not Detected; U Methamphetamine Screen DETECTED; U Opiates Screen DETECTED; U Oxycodone Screen Not Detected; U Phencyclidine Screen Not Detected; U Propoxyphene Screen Not Detected
--- NOTE | 2022-10-08 00:54 | NUR ---
TRANSFER NOTE/PATIENT UPDATE THIS RN RECEIVED REPORT VIA PHONE FROM JORGE LUIS FRANK IN THE ED. PATIENT TRANSFERRED TO ROOM 17 AT 2244. RT IN ROOM FOR TRANSFER DUE TO BIPAP. PATIENT'S O2 SATS >95% WITH 45%FIO2. AFEBRILE. BP STABLE. RR FLUCTUATING DEPENDING ON EXERTION; AT REST RR 20-22. PATIENT DENIES CHEST PAIN/PRESSURE. ABLE TO ASSIST WITH TURNING IN BED BUT IS NOTABLY WEAK. MARINE SURVEYOR DAMION NOTED ST DEPRESSION ON TELEMETRY THAT WAS NEW WHEN COMPARED TO PREVIOUS EKG. PRN EKG DONE PER PROTOCOL; T WAVE INVERSION NOTED; PROVIDER NOTIFIED WITH ORDERS FOR A STAT TROPONIN. TROPONIN DRAWN AND CAME BACK LOWER THAN PREVIOUS TROPONIN THAT WAS DRAWN AROUND 1999. NO FURTHER ORDERS AT THIS TIME. PATIENT WAS ABLE TO ANSWER QUESTIONS APPROPRIATELY BUT BECAME SOB WITH VERBALIZING MORE THAN 2-3 WORDS AT A TIME. PATIENT IS ALSO LETHARGIC AND QUICKLY FALLS BACK TO SLEEP DURING QUESTIONS/CARE. PATIENT VERBALIZED UNDERSTANDING OF WHY THE BIPAP IS NEEDED. PATIENT APPEARS TO BE RESTING AT THIS TIME. VITALS STABLE. BED IN LOWEST POSITION, BED ALARM ON, CALL LIGHT WITHIN REACH. FREQUENT CHECKS BY THIS RN FOR SAFETY. HAYS CATHETER PATENT AND DRAINING LIGHT YELLOW URINE. THIS RN WILL REVIEW CHART AND CONTINUE TO MONITOR AND PROVIDE INTERVENTIONS ORDERED/NEEDED.
[2022-10-08 03:49] LABS: Bicarbonate Venous 25.5 mmol/L (24.0-30.0); PCO2 Venous 36.4 mmHg (38-42); pH Blood Venous 7.45 (7.34-7.37)
[2022-10-08 04:16] LABS: BASOPHILS PERCENT AUTO 0 % (0-2); EOSINOPHILS PERCENT AUTO 0 % (0-6); Hematocrit 35.9 % (33.0-51.0); Hemoglobin 11.6 g/dL (11.5-16.0); IMMATURE GRAN ABSOLUTE AUTO 0.02 K/mm3 (0.00-0.10); IMMATURE GRAN PERCENT AUTO 0 % (0-1); LYMPHOCYTES PERCENT AUTO 8 % (21-46); MONOCYTES ABSOLUTE AUTO 0.04 K/mm3 (0.16-1.47); MONOCYTES PERCENT AUTO 1 % (4-13); Mean Corpuscular HGB 29.2 pg (26.0-34.0); Mean Corpuscular HGB Conc 32.3 g/dL (31.5-36.5); Mean Corpuscular Volume 90 fL (80-100); Mean Platelet Volume 9.7 fL (9.1-12.4); NEUTROPHILS ABSOLUTE AUTO 4.57 K/mm3 (1.96-9.15); NEUTROPHILS PERCENT AUTO 91 % (41-73); Platelet Count 345 K/mm3 (150-400); RDW Coefficient Variation 12.7 % (11.7-14.2); RDW Standard Deviation 42.2 fL (35.1-46.3); Red Blood Cell Count 3.97 M/mm3 (3.80-5.20); White Blood Cell Count 5.03 K/mm3 (4.00-11.30)
--- NOTE | 2022-10-08 04:23 | NUR ---
SHIFT SUMMARY PATIENT LETHARGIC AND ORIENTED X4. PATIENT COOPERATIVE WITH CARE BUT ANXIOUS/TEARFUL AT TIMES. PATIENT RESPONDS APPROPRIATELY TO QUESTIONS BUT QUICKLY FALLS BACK TO SLEEP. BIPAP REMAINED IN PLACE THROUGHOUT THIS SHIFT. PATIENT UNDERSTANDS THE NEED TO KEEP BIPAP ON. FIO2 DECREASED TO 25% WITH O2 SATS >94%. PATIENT DENIES CHEST PAIN/PRESSURE. BP STABLE. AFEBRILE. RR 17-20 WHILE RESTING. TACHYPNEA NOTED WITH EXERTION/ANXIETY. TEMP HAYS CATHETER PATENT AND DRAINING LIGHT YELLOW URINE TO GRAVITY. OCCASIONAL BODY JERKING/TWITCHING MOTIONS NOTED BY THIS RN. PATIENT ABLE TO REPOSITION SELF IN BED. PATIENT APPEARS TO BE RESTING AT THIS TIME WITH BED IN LOWEST POSITION, BED ALARM ON, AND CALL LIGHT WITHIN REACH. THIS RN WILL CONTINUE TO MONITOR UNTIL SHIFT CHANGE AT 0700.
[2022-10-08 04:43] LABS: Albumin, Blood 2.6 g/dL (3.4-5.0); Anion Gap 11 mmol/L (6-16); Blood Urea Nitrogen 39 mg/dL (8-24); Bun/Creatinine Ratio 26.2 (12.0-20.0); CO2, Blood 24 mmol/L (21-32); Chloride, Blood 104 mmol/L (98-108); Creatinine, Blood 1.49 mg/dL (0.40-1.00); Glomerular Filtration Rate 40 (60-); Glucose, Blood 142 mg/dL (70-99); Magnesium, Blood 2.2 mg/dL (1.6-2.4); Phosphorus, Blood 4.5 mg/dL (2.5-4.9); Potassium, Blood 4.4 mmol/L (3.5-5.5); Sodium, Blood 139 mmol/L (136-145)
--- NOTE | 2022-10-08 12:14 | NUR ---
"Spiritual Care | Pt. Request Pt. is awake in bed and welcomes my visit. Pt. is unsettled by the weight of loss in her life in the past year. Pt. displays evidence of despair. Listen empathetically with a calming presence. establish rapport. Pastoral bevreavement certified lactation counselor is given. Pt. is catharthic, and displays evidence of understanding. Prayed with Pt. Pt. verbalizes gratitude for the spiritual care visit."
--- NOTE | 2022-10-08 17:51 | NUR ---
SHIFT SUMMARY PT A/OX4 AND COOPERATIVE OF CARE. VSS THROUGHOUT SHIFT WITH O2 SATS >93% ON RA. PT REMOVED BIPAP AROUND 0700 AND REMAINED ON RA THE REST OF SHIFT. NO REPORT OF CHEST PAIN/PRESSURE THROUGHOUT SHIFT. NO REPORT OF SOB/DYSPNEA THROUGHOUT SHIFT. PT ANXIOUS AT BEGINNING OF SHIFT STATING "I WANT MY DAUGHTER" AND "I WANT TO GO HOME" MULTIPLE TIMES. PT HAD PERIODS OF CRYING JUST AFTER THE REMARKS. PT REMAINED IN HER BED DURING SHIFT, ABLE TO TURN HERSELF IN BED. PT HAS HAYS IN PLACE DRAINING TO GRAVITY, YELLOW URINE. PT RECIEVING DIURETICS PER EMAR. PT REPORTED SOME RESTLESSNESS STATING THAT IT IS "WITHDRAWALS FROM THE METH."
--- NOTE | 2022-10-09 04:55 | NUR ---
SHIFT SUMMARY PT A&Ox4, CALLS AND COMMUNICATES NEEDS APPROPRIATELY. VSS, SpO2> 92% RA, DENIES SOB. BP STABLE, SINUS 90's, DENIES CP/PRESSURE. PT WITH ANXIETY AT START OF SHIFT, ADMINISTERED PRN ATIVAN, PT RESPONDED WELL AND WAS ABLE TOREST COMFORTABLY THROUGHOUT THE SHIFT. HAYS CATHETER IN PLACE, PATENT, DRAINING TO GRAVITY. NO ACUTE EVENTS THIS SHIFT, WILL REPORT TO DAY SHIFT RN.
[2022-10-09] MEDS ORDERED: Nicoderm Cq1 EAC1 TOP (12:46)
--- NOTE | 2022-10-09 14:07 | NUR ---
discharge summary: Patient was discharged and wheeled out by pct, patient had complete understanding of medication record, needs of appointments, and status of chronic illness. patient understood discharge instruction completely with no other concerns or questions. Patient denies chest pain/pressure, or sob at rest. patient is in complete agreeance with plan of care. No concerns from this RN. telemetry and both iv's removed.
== END 2022-10-09 13:52 | disposition home or self-care (01) | DRG 917 ==
LOC: ER 16:31 → PCU 18:52 → ERHOLD 18:52 → PCU 22:45
PROVIDERS: Emergency Medicine; ADMIT Internal Medicine
PROC: 5A09357 Assistance with Respiratory Ventilation, Less than 24 Consecutive Hours, Continuous Positive Airway Pressure (ICD-10-PCS; principal; 2022-10-07)
DX: T43.651A Poisoning by methamphetamines accidental (unintentional), initial encounter (principal); G92.8 Other toxic encephalopathy; I50.23 Acute on chronic systolic (congestive) heart failure; J96.01 Acute respiratory failure with hypoxia; J96.02 Acute respiratory failure with hypercapnia; E87.3 Alkalosis; I42.8 Other cardiomyopathies; M10.9 Gout, unspecified; J44.9 Chronic obstructive pulmonary disease, unspecified; F17.210 Nicotine dependence, cigarettes, uncomplicated; F12.10 Cannabis abuse, uncomplicated; R82.81 Pyuria; F11.10 Opioid abuse, uncomplicated; N18.32 Chronic kidney disease, stage 3b; Z20.822 Contact with and (suspected) exposure to COVID-19; Z79.82 Long term (current) use of aspirin; Z79.51 Long term (current) use of inhaled steroids; Z79.899 Other long term (current) drug therapy; Z79.2 Long term (current) use of antibiotics; Z87.19 Personal history of other diseases of the digestive system; Z98.890 Other specified postprocedural states; Z98.51 Tubal ligation status; Z99.81 Dependence on supplemental oxygen
CPT/HCPCS: 0241U; 36415; 71045; 80053; 80069; 81001; 82803; 83605; 83735; 83880; 84145; 84484; 85025; 90686; 93005; 93010; 94640; 94644; 94660; 94664; 94762; A9270; C8929; J0696; J1650; J1940; J2405; Q9957

== ENCOUNTER 2023-03-29 14:39 | Emergency (ER) | payer OTHER ==
[~2023-03-29] VITALS: Ht 160 cm; Wt 59.0 kg
[~2023-03-29 14:39] MED LIST changes: +BUME2 PO; +CALC.25 PO; +LOSA25 PO
[2023-03-29 15:17] LABS: BASOPHILS ABSOLUTE AUTO 0.06 K/mm3 (0.00-0.23); BASOPHILS PERCENT AUTO 1 % (0-2); EOSINOPHILS PERCENT AUTO 4 % (0-6); Hematocrit 35.2 % (33.0-51.0); Hemoglobin 12.1 g/dL (11.5-16.0); IMMATURE GRAN ABSOLUTE AUTO 0.01 K/mm3 (0.00-0.10); IMMATURE GRAN PERCENT AUTO 0 % (0-1); LYMPHOCYTES ABSOLUTE AUTO 1.19 K/mm3 (0.84-5.20); LYMPHOCYTES PERCENT AUTO 18 % (21-46); MONOCYTES ABSOLUTE AUTO 0.57 K/mm3 (0.16-1.47); MONOCYTES PERCENT AUTO 8 % (4-13); Mean Corpuscular HGB 29.9 pg (26.0-34.0); Mean Corpuscular HGB Conc 34.4 g/dL (31.5-36.5); Mean Corpuscular Volume 87 fL (80-100); Mean Platelet Volume 9.6 fL (9.1-12.4); NEUTROPHILS ABSOLUTE AUTO 4.66 K/mm3 (1.96-9.15); NEUTROPHILS PERCENT AUTO 69 % (41-73); Platelet Count 342 K/mm3 (150-400); RDW Coefficient Variation 12.6 % (11.7-14.2); RDW Standard Deviation 40.4 fL (35.1-46.3); Red Blood Cell Count 4.05 M/mm3 (3.80-5.20); White Blood Cell Count 6.79 K/mm3 (4.00-11.30)
[2023-03-29 15:35] LABS: Albumin, Blood 2.9 g/dL (3.4-5.0); Albumin/Globulin Ratio 0.9 (0.8-1.8); Bilirubin, Total 0.4 mg/dL (0.1-1.0); Bun/Creatinine Ratio 21.1 (12.0-20.0); Calcium, Blood 8.5 mg/dL (8.5-10.1); Creatinine, Blood 1.28 mg/dL (0.40-1.00); Globulin, Blood 3.4 g/dL (2.2-4.0); Total Protein, Blood 6.3 g/dL (6.4-8.2)
[2023-03-29 17:23] VITALS: BP 137/68
== END 2023-03-29 17:30 | disposition left against medical advice (07) ==
LOC: ER 14:39
PROVIDERS: Emergency Medicine
DX: R07.89 Other chest pain (principal); R06.02 Shortness of breath; R05.9 Cough, unspecified; Z53.29 Procedure and treatment not carried out because of patient's decision for other reasons; F17.210 Nicotine dependence, cigarettes, uncomplicated; I50.9 Heart failure, unspecified; N18.30 Chronic kidney disease, stage 3 unspecified; M10.9 Gout, unspecified; J44.9 Chronic obstructive pulmonary disease, unspecified; Z79.899 Other long term (current) drug therapy
CPT/HCPCS: 71045; 80053; 83880; 84484; 85025; 85379; 93005; 93010

== ENCOUNTER 2023-10-29 13:45 | Inpatient (IN) | payer OTHER ==
[2023-10-29] VITALS (25 sets, daily range): BP systolic 71–125; BP diastolic 52–84
[~2023-10-29] VITALS: Ht 162.6 cm; Wt 52.3 kg
[2023-10-29 14:00] LABS: Calcium, Ionized (POC) 1.03 mmol/L (1.10-1.46); Chloride (POC) 104 mmol/L (98-108); Creatinine (POC) 1.4 mg/dL (0.6-1.0); Glucose (ISTAT POC) 186 mg/dL (70-99); Hemoglobin (POC) 16.3 g/dL (12.0-16.0); Potassium (POC) 3.5 mmol/L (3.5-5.5); Sodium (POC) 138 mmol/L (135-148); Total CO2 (POC) 21 mmol/L (21-32)
[2023-10-29 14:01] LABS: Base Excess Venous -15.8 mmol/L; Bicarbonate Venous 11.1 mmol/L (24.0-30.0); PCO2 Venous 84.3 mmHg (38-42)
[2023-10-29 14:02] LABS: pH Blood Venous 6.91 (7.34-7.37)
[2023-10-29 14:35] LABS: Albumin/Globulin Ratio 0.8 (0.8-1.8); Bilirubin, Total 0.3 mg/dL (0.1-1.0); Bun/Creatinine Ratio 16.2 (12.0-20.0); Calcium, Blood 8.6 mg/dL (8.5-10.1); Creatinine, Blood 1.36 mg/dL (0.40-1.00); Potassium, Blood 3.5 mmol/L (3.5-5.5)
[2023-10-29 14:39] LABS: Hematocrit 48.9 % (33.0-51.0); Hemoglobin 14.5 g/dL (11.5-16.0); Mean Corpuscular HGB Conc 29.7 g/dL (31.5-36.5); Mean Corpuscular Volume 101 fL (80-100); Mean Platelet Volume 10.4 fL (9.1-12.4); Platelet Count 307 K/mm3 (150-400); RDW Coefficient Variation 12.3 % (11.7-14.2); RDW Standard Deviation 46.2 fL (35.1-46.3); Red Blood Cell Count 4.84 M/mm3 (3.80-5.20); White Blood Cell Count 13.13 K/mm3 (4.00-11.30)
[2023-10-29 15:30] LABS: pH Blood Arterial 6.99 (7.35-7.45)
[2023-10-29 15:31] LABS: PCO2 Arterial 95.1 mmHg (35-45); PO2 Arterial 54.6 mmHg (80-100)
[2023-10-29 15:40] LABS: BASOPHILS PERCENT MAN 0 % (0-2); EOSINOPHILS ABSOLUTE MAN 0.52 K/mm3 (0.00-0.68); EOSINOPHILS PERCENT MAN 4 % (0-6); LYMPHOCYTES % ATYPICAL MANUAL 2 % (0-0); LYMPHOCYTES ABSOLUTE MAN 7.35 K/mm3 (0.84-5.20); LYMPHOCYTES PERCENT MAN 54 % (21-46); MONOCYTES ABSOLUTE MAN 0.78 K/mm3 (0.16-1.47); MONOCYTES PERCENT MAN 6 % (4-13); NEUTROPHILS ABSOLUTE MAN 4.46 K/mm3 (1.96-9.15); SEG NEUTROPHILS PERCENT MAN 34 % (41-73); TOTAL CELLS COUNTED 100
--- NOTE | 2023-10-29 18:01 | NUR ---
ADMIT PT ARRIVED TO ICU 5 AT 1640 VIA ER BED. PT ARRIVED ON VENT WITH RT AT BEDSIDE. VENT SETTINGS AC 24, TV 360, PEEP INCREASED TO 10, AND FIO2 100%. PT INITIALLY WITH SPO2 80'S. SPO2 SLOWLY INCREASED TO 90-91%. PT IS NOT SEDATED. PT DOES NOT WITHDRAW EXTREMITIES TO NOXIOUS STIMULI. NO COUGH OR GAG PRESENT. PT WITH SPONTANEOUS MOVEMENTS OF HEAD SIDE TO SIDE AND SHRUGS SHOULDERS. OGT IN PLACE, CLAMPED. IV'S IN PLACE WITH ZOSYN INFUSING. HAYS TEMP PROBE PLACED IN ER. NO URINE OUTPUT NOTED AT THIS TIME. PT WITH MOTTLING NOTED TO HANDS AND KNEES DOWN TO FEET. LIPS DUSKY. VITAL SIGNS STABLE AT THIS TIME. NO FAMILY AT BEDSIDE. IGNITION SOURCES FOUND IN PT BELONGINGS. WILL ATTEMPT TO SEND HOME WITH FAMILY. IF FAMILY UNABLE TO TAKE IGNITION SOURCES, WILL SEND TO SECURITY. WILL CONTINUE TO MONITOR AND REPORT OFF TO ONCOMING RN.
[2023-10-29 18:22] LABS: PCO2 Venous 48.3 mmHg (38-42); pH Blood Venous 7.13 (7.34-7.37)
[2023-10-29 18:23] LABS: Base Excess Venous -13.3 mmol/L; Bicarbonate Venous 14.3 mmol/L (24.0-30.0)
--- NOTE | 2023-10-29 18:56 | NUR ---
BELONGINGS: Patient's purse arrived with her form ED. Cigaret's and marijuana pipe visible in purse. Patient unable consent to search remaining items in purse or deny presence of ignition sources. Unable to contact family to take belongings home. Security refused to take belongings to their safe r/t size of purse. Entire purse placed in belongings bag and locked belongings cabinent in solid hold.
[2023-10-29 20:16] LABS: Adenovirus Not Detected (NOT DETECT); Bordetella pertussis Not Detected (NOT DETECT); Chlamydophila pneumoniae Not Detected (NOT DETECT); Coronavirus 229E Not Detected (NOT DETECT); Coronavirus HKU1 Not Detected (NOT DETECT); Coronavirus NL63 Not Detected (NOT DETECT); Coronavirus OC43 Not Detected (NOT DETECT); Human Metapneumovirus Not Detected (NOT DETECT); Human Rhinovirus/Enterovirus Detected (NOT DETECT); Influenza A/2009-H1 Not Detected (NOT DETECT); Influenza A/H1 Not Detected (NOT DETECT); Influenza A/H3 Not Detected (NOT DETECT); Influenza B Not Detected (NOT DETECT); Mycoplasma pneumoniae Not Detected (NOT DETECT); Parainfluenza Virus 1 Not Detected (NOT DETECT); Parainfluenza Virus 2 Not Detected (NOT DETECT); Parainfluenza Virus 3 Not Detected (NOT DETECT); Parainfluenza Virus 4 Not Detected (NOT DETECT); Respiratory Syncytial Virus Not Detected (NOT DETECT); SARS-Cov-2 (COVID-19), BioFire Not Detected (NOT DETECT)
[2023-10-29 20:56] LABS: Source, Urine Foley catheter
[2023-10-29 20:59] LABS: Bilirubin, Urine Neg (Neg); Blood, Urine 4+ (Neg); Glucose Qualitative, Urine Neg (Neg); Ketones, Urine Neg (Neg); Leukocyte Esterase, Urine Neg (Neg); Nitrite, Urine Neg (Neg); Protein, Urine 4+ (Neg); Specific Gravity, Urine 1.015 (1.003-1.022); Urobilinogen, Urine NORM (Normal)
[2023-10-29 21:04] LABS: U Amphetamine Screen DETECTED; U Barbituate Screen Not Detected; U Benzodiazapine Screen Not Detected; U Buprenorphine Screen Not Detected; U Cannabinoids Screen DETECTED; U Cocaine Screen Not Detected; U Methadone Screen Not Detected; U Methamphetamine Screen DETECTED; U Opiates Screen Not Detected; U Oxycodone Screen Not Detected; U Phencyclidine Screen Not Detected
[2023-10-29 21:05] LABS: Color, Urine Yellow (P-Yellow)
[2023-10-29 21:06] LABS: Appearance, Urine Hazy (Clear)
[2023-10-29 21:07] LABS: Bacteria Few /hpf; Squamous Epithelial Cells Mod /hpf (Few)
[2023-10-29 21:08] LABS: Amorphous Heavy (0-Heavy); Mucus Light (0-Heavy)
[2023-10-29 22:18] LABS: Base Excess Venous -8.6 mmol/L; Bicarbonate Venous 17.2 mmol/L (24.0-30.0); PCO2 Venous 54.7 mmHg (38-42)
[2023-10-29 22:19] LABS: pH Blood Venous 7.17 (7.34-7.37)
[2023-10-29 22:53] LABS: Albumin, Blood 2.3 g/dL (3.4-5.0); Anion Gap 12 mmol/L (6-16); Blood Urea Nitrogen 30 mg/dL (8-24); Bun/Creatinine Ratio 14.9 (12.0-20.0); CO2, Blood 22 mmol/L (21-32); Calcium, Blood 7.4 mg/dL (8.5-10.1); Chloride, Blood 107 mmol/L (98-108); Creatinine, Blood 2.02 mg/dL (0.40-1.00); Glomerular Filtration Rate 28 (60-); Glucose, Blood 151 mg/dL (70-99); Phosphorus, Blood 8.8 mg/dL (2.5-4.9); Potassium, Blood 4.3 mmol/L (3.5-5.5); Sodium, Blood 141 mmol/L (136-145)
[2023-10-30] VITALS (88 sets, daily range): BP systolic 85–124; BP diastolic 51–111
[2023-10-30 04:26] LABS: Base Excess Venous -6.6 mmol/L; Bicarbonate Venous 18.9 mmol/L (24.0-30.0)
[2023-10-30 04:27] LABS: pH Blood Venous 7.27 (7.34-7.37)
[2023-10-30 04:30] LABS: PCO2 Venous 44.8 mmHg (38-42)
[2023-10-30 04:32] LABS: BASOPHILS ABSOLUTE AUTO 0.02 K/mm3 (0.00-0.23); BASOPHILS PERCENT AUTO 0 % (0-2); EOSINOPHILS PERCENT AUTO 0 % (0-6); Hematocrit 42.3 % (33.0-51.0); Hemoglobin 13.7 g/dL (11.5-16.0); IMMATURE GRAN ABSOLUTE AUTO 0.03 K/mm3 (0.00-0.10); IMMATURE GRAN PERCENT AUTO 0 % (0-1); LYMPHOCYTES ABSOLUTE AUTO 0.68 K/mm3 (0.84-5.20); LYMPHOCYTES PERCENT AUTO 4 % (21-46); MONOCYTES ABSOLUTE AUTO 0.68 K/mm3 (0.16-1.47); MONOCYTES PERCENT AUTO 4 % (4-13); Mean Corpuscular HGB Conc 32.4 g/dL (31.5-36.5); Mean Platelet Volume 10.1 fL (9.1-12.4); NEUTROPHILS ABSOLUTE AUTO 15.71 K/mm3 (1.96-9.15); NEUTROPHILS PERCENT AUTO 92 % (41-73); Platelet Count 266 K/mm3 (150-400); RDW Coefficient Variation 12.4 % (11.7-14.2); RDW Standard Deviation 42.3 fL (35.1-46.3); Red Blood Cell Count 4.57 M/mm3 (3.80-5.20); White Blood Cell Count 17.12 K/mm3 (4.00-11.30)
[2023-10-30 04:50] LABS: International Normalized Ratio 1.25
[2023-10-30 04:51] LABS: Mean Corpuscular Volume 93 fL (80-100)
[2023-10-30 04:54] LABS: Albumin, Blood 2.4 g/dL (3.4-5.0); Albumin/Globulin Ratio 0.7 (0.8-1.8); Bilirubin, Total 0.4 mg/dL (0.1-1.0); Bun/Creatinine Ratio 16.3 (12.0-20.0); Calcium, Blood 7.7 mg/dL (8.5-10.1); Creatinine, Blood 2.33 mg/dL (0.40-1.00); Globulin, Blood 3.3 g/dL (2.2-4.0); Phosphorus, Blood 6.7 mg/dL (2.5-4.9); Potassium, Blood 4.4 mmol/L (3.5-5.5); Total Protein, Blood 5.7 g/dL (6.4-8.2)
--- NOTE | 2023-10-30 06:12 | NUR ---
SHIFT SUMMARY: PT REMAINS INTUBATED AND SEDATED. PT BECOMES VERY RESTLESS AND AGGITATED WITH MOVEMENT, PULLING AGAINST RESTRAINTS AND FIGHTING THE VENT. PROPOFOL TITRATED TO 50 MCG/KG/MIN FOR VENT COMPLIANCE AND COMFORT. PT MEDICATED PER MAR WITH LITTLE RELIEF. ABLE TO OPEN EYES TO VERBAL STIMULI AND FOLLOW COMMANDS. VENT SETTINGS AC/PC, RATE 24, PEEP 12, FIO2 75%. SPO2 >95%. PT CONTINUES TO HAVE MODERATE AMOUNTS OF THICK, TANNISH RED SECRETIONS FROM ET TUBE. CONDITIONER TUMBLER IN PLACE, SR WITH HR 80'S. LEVOPHED AT 4 MCG/MIN, TITRATED TO MAINTAIN MAP >65. CENTRAL LINE TO RIJ, INFUSING. POWERGLIDE TO KEYLA, SALINE LOCKED. PIV, SALINE LOCKED. HAYS DRAINING TO GRAVITY. LARGE ELBA BM THIS SHIFT. DAUGHTER IN LAW, HERMELINDO CALLED THIS SHIFT FOR AN UPDATE. CALL LIGHT IN REACH.
--- NOTE | 2023-10-30 16:43 | NUR ---
SHIFT SUMMARY NO ACUTE CHANGES THIS SHIFT. PT REMAINS INTUBATED AND SEDATED. PT SEDATED WITH PROPOFOL AT 60 MCG/KG/MIN. PT MED WITH FENTANYL AND ATIVAN PRN. PT WITH PERIODS OF RESTLESSNESS AND THRASHING IN THE BED. PT DOES NOT FOLLOW ANY DIRECTIONS. PT MOVES ALL EXTREMITIES SPONTANEOUSLY. VENT SETTING AC/PC 18, 20/5, FIO2 30%. PT WITH CENTRAL LINE IN PLACE TO [facility]. LEVOPHED INFUSING AT 2 MCG/MIN AND NS TKO. OGT REMAINS IN PLACE, CLAMPED AT THIS TIME. HAYS TEMP PROBE REMAINS IN PLACE WITH YELLOW URINE OUTPUT NOTED. PT SKIN REMAINS COOL/PALE. LIPS ARE NO LONGER DUSKY AND NO MOTTLING NOTED. VITAL SIGNS HAVE REMAINED STABLE. SBW RESTRAINTS REMAIN IN PLACE. PT FAMILY IN FOR SHORT PERIOD THIS MORNING. WILL CONTINUE TO MONITOR AND REPORT OFF TO ONCOMING RN.
--- NOTE | 2023-10-30 19:38 | NUR ---
ASSUMED CARE OF PT AT 1915 BEDSIDE REPORT RECEIVED FROM MONIKA SIMMS. PT IS SEDATED W/PROPOFOL. PRN ATIVAN AND FENTANYL ORDERED. BILAT WRIST RESTRAINTS REMAIN IN PLACE TO PROTECT LINES/TUBES. PT CONTINUES TO ACTIVELY PULL AT LINES AT ATTEMPT OOB WHEN STIMULATED. PT STABLE ON CURRENT VENT SETTINGS WITH PEEP @ 5 AND FIO2 REQUIREMENTS DOWN TO 30%. CONTINUOUS CARDIAC MONITORING, SR 90'S. LEVOPHED OFF SINCE APPROX 1700, BP REMAINS STABLE WITH MAP > 65. OGT IN PLACE, CLAMPED. HAYS PATENT AND DRAINING YELLOW URINE. SKIN INTACT. CENTRAL LINE TO RIGHT IJ REMAINS IN PLACE, DRESSING C/D/I. PIV X2 RIGHT FA AND RIGHT AC AND POWERGLIDE TO LEFT UPPER ARM ALL SL. NO FAMILY AT BEDSIDE. BELONGINGS REMAIN LOCKED IN ICU CABINET DUE TO IGNITION SOURCES PRESENT. POC ONGOING.
[2023-10-31] VITALS (42 sets, daily range): BP systolic 98–128; BP diastolic 55–82
[2023-10-31 04:40] LABS: Base Excess Venous -1.1 mmol/L; Bicarbonate Venous 22.9 mmol/L (24.0-30.0); PCO2 Venous 45.5 mmHg (38-42); pH Blood Venous 7.34 (7.34-7.37)
[2023-10-31 04:50] LABS: BASOPHILS ABSOLUTE AUTO 0.02 K/mm3 (0.00-0.23); BASOPHILS PERCENT AUTO 0 % (0-2); EOSINOPHILS ABSOLUTE AUTO 0.02 K/mm3 (0.00-0.68); EOSINOPHILS PERCENT AUTO 0 % (0-6); Hematocrit 33.2 % (33.0-51.0); Hemoglobin 11.1 g/dL (11.5-16.0); IMMATURE GRAN ABSOLUTE AUTO 0.05 K/mm3 (0.00-0.10); IMMATURE GRAN PERCENT AUTO 0 % (0-1); LYMPHOCYTES ABSOLUTE AUTO 1.56 K/mm3 (0.84-5.20); LYMPHOCYTES PERCENT AUTO 12 % (21-46); MONOCYTES ABSOLUTE AUTO 0.91 K/mm3 (0.16-1.47); MONOCYTES PERCENT AUTO 7 % (4-13); Mean Corpuscular HGB 30.3 pg (26.0-34.0); Mean Corpuscular HGB Conc 33.4 g/dL (31.5-36.5); Mean Corpuscular Volume 91 fL (80-100); Mean Platelet Volume 10.4 fL (9.1-12.4); NEUTROPHILS ABSOLUTE AUTO 10.54 K/mm3 (1.96-9.15); NEUTROPHILS PERCENT AUTO 80 % (41-73); Platelet Count 184 K/mm3 (150-400); RDW Standard Deviation 43.1 fL (35.1-46.3); Red Blood Cell Count 3.66 M/mm3 (3.80-5.20)
--- NOTE | 2023-10-31 05:16 | NUR ---
SHIFT SUMMARY PT REMAINS SEDATED. ABLE TO TITRATE SEDATION DOWN SLIGHTLY. SR, HR 70'S WITH OCCASIONAL PVC'S. BP 113/63 (79). LEVOPHED REMAINS OFF. VENT SETTINGS UNCHANGED, MINIMAL SECRETIONS SUCTIONED FROM ETT. OGT IN PLACE, CLAMPED. BM X1 THIS SHIFT. HAYS PATENT AND DRAINING CLEAR YELLOW URINE. URINE OUTPUT HAS IMPROVED SIGNIFICANTLY. SKIN UNCHANGED. COOL EXTREMETIES. NO FEVER. CENTRAL LINE TO RIGHT IJ, PERIPERAL IV TO RIGHT FOREARM AND LEFT FOREARM. PG TO LEFT UPPER ARM. NO FAMILY AT BEDSIDE, NO CALLS FOR UPDATES. POC ONGOING.
[2023-10-31 05:17] LABS: Albumin, Blood 2.2 g/dL (3.4-5.0); Albumin/Globulin Ratio 0.8 (0.8-1.8); Bilirubin, Total 0.6 mg/dL (0.1-1.0); Bun/Creatinine Ratio 20.4 (12.0-20.0); Calcium, Blood 7.5 mg/dL (8.5-10.1); Creatinine, Blood 3.04 mg/dL (0.40-1.00); Globulin, Blood 2.9 g/dL (2.2-4.0); Phosphorus, Blood 6.8 mg/dL (2.5-4.9); Potassium, Blood 5.1 mmol/L (3.5-5.5); Total Protein, Blood 5.1 g/dL (6.4-8.2)
--- NOTE | 2023-10-31 11:22 | NUR ---
CHANGES MADE TO VENTILATOR, PT ON SPONTANEOUS. PT'S RESP RATE AND DRIVE INCREASING, NOT CALMING WITH VERBAL STIMULUS. MEDICATED WITH FENTANYL 50MCG WITH GOOD RESPONSE.
--- NOTE | 2023-10-31 18:06 | NUR ---
FROYLAN HAS CONTINUED ON THE VENTILATOR. CURRENTLY Melissa PC iTIME 0.7, PRESSURE 16, RATE 16, PEEP 8, FIO2 30%. COPIOUS AMOUNTS OF THICK MCGEE SECRETIONS. LUNGS COARSE, CLEAR AFTER COUGHING BUT SHE REMAINS TACYPNEIC FOR QUITE SOME TIME AFTER COUGHING SPELL AND SUCTIONING. SHE HAS BEEN MEDICATED WITH ATIVAN, NO CHANGES NOTED AND FENTANYL WITH CALMING OF THE RESPIRATORY PATTERN. SHE WAS ON SPONTANEOUS FOR SEVERAL HOURS DURING THE DAY, RESTED WELL FOR A SHORT PERIOD OF TIME, WITH RESPS LESS THAN 20. SHE WAS GIVEN A FULL BATH AND SHE BECAME QUITE TACHYPNEIC. RIGHT IJ SITE REMOVED, IT WASN'T BEING USED. PRESSURE HELD FOR 10MIN PER PROTOCOL. SITE REMAINS C/D/I. PIV IN RIGHT AND LEFT BOTH FLUSH WELL AND DRAW WELL. POWER GLIDE WITH IV TKO FOR ANTIBIOTIC THERAPY AND PROPOFOL INFUSION. HANDS ARE SLIGHTLY PUFFY, GOOD PULSES EVERYWHERE. IS NOT OPENING HER EYES OR FOLLOWING COMMANDS. PROPOFOL REMAINS AT 55MCG/KG RIGHT NOW FOR BATH AND WILL BEGIN TITRATING AGAIN WHEN ABLE.
--- NOTE | 2023-10-31 20:39 | NUR ---
ASSUMED CARE OF PT AT 1915 BEDSIDE REPORT RECEIVED FROM MONIKA NÚÑEZ. PT IS CURRENTLY SEDATED AND IN BILAT WRIST RESTRAINTS. CONTINUES TO REACH FOR ETT AND THRASH WHEN SEDATION DECREASED. SR, BP WNL. INCREASED SECRETIONS FROM ETT, THICK AND MCGEE. O2 SAT 96% ON 30% FIO2 VIA VENT. OGT CLAMPED. BS NORMOACTIVE. HAYS PATENT AND DRAINING CLEAR YELLOW URINE. SKIN INTACT. EXTREMETIES COOL TO TOUCH BUT COLOR NORMAL. PG TO LEFT UPPER ARM, INFUSING, FLUSHES WELL AND WITHDRAWS BLOOD. PIV X2 (RIGHT AND LEFT FOREARMS) BOTH FLUSH AND WITHDRAW BLOOD, BOTH SL. NO FAMILY AT BEDSIDE. POC ONGOING.
[2023-11-01] VITALS (49 sets, daily range): BP systolic 109–154; BP diastolic 62–95
[2023-11-01 04:02] LABS: BASOPHILS ABSOLUTE AUTO 0.03 K/mm3 (0.00-0.23); BASOPHILS PERCENT AUTO 0 % (0-2); EOSINOPHILS ABSOLUTE AUTO 0.17 K/mm3 (0.00-0.68); EOSINOPHILS PERCENT AUTO 2 % (0-6); Hematocrit 33.6 % (33.0-51.0); Hemoglobin 11.1 g/dL (11.5-16.0); IMMATURE GRAN ABSOLUTE AUTO 0.02 K/mm3 (0.00-0.10); IMMATURE GRAN PERCENT AUTO 0 % (0-1); LYMPHOCYTES PERCENT AUTO 14 % (21-46); MONOCYTES ABSOLUTE AUTO 0.86 K/mm3 (0.16-1.47); MONOCYTES PERCENT AUTO 8 % (4-13); Mean Corpuscular HGB 29.8 pg (26.0-34.0); Mean Corpuscular Volume 90 fL (80-100); Mean Platelet Volume 10.7 fL (9.1-12.4); NEUTROPHILS ABSOLUTE AUTO 8.85 K/mm3 (1.96-9.15); NEUTROPHILS PERCENT AUTO 77 % (41-73); Platelet Count 201 K/mm3 (150-400); RDW Coefficient Variation 13.2 % (11.7-14.2); RDW Standard Deviation 43.8 fL (35.1-46.3); Red Blood Cell Count 3.72 M/mm3 (3.80-5.20); White Blood Cell Count 11.53 K/mm3 (4.00-11.30)
[2023-11-01 04:22] LABS: Albumin, Blood 2.4 g/dL (3.4-5.0); Albumin/Globulin Ratio 0.8 (0.8-1.8); Bilirubin, Total 0.7 mg/dL (0.1-1.0); Bun/Creatinine Ratio 24.5 (12.0-20.0); Calcium, Blood 7.9 mg/dL (8.5-10.1); Creatinine, Blood 2.74 mg/dL (0.40-1.00); Globulin, Blood 3.2 g/dL (2.2-4.0); Magnesium, Blood 2.8 mg/dL (1.6-2.4); Phosphorus, Blood 4.9 mg/dL (2.5-4.9); Potassium, Blood 4.6 mmol/L (3.5-5.5); Total Protein, Blood 5.6 g/dL (6.4-8.2)
--- NOTE | 2023-11-01 07:36 | NUR ---
END OF SHIFT SUMMARY PT REMAINS SEDATED W/PROPOFOL. ATIVAN IVP GIVEN X1. SR, BP WNL. VENT SETTINGS UNCHANGED. OGT CLAMPED. BM X2. HAYS PATENT AND DRAINING YELLOW GREEN URINE. SKIN INTACT. PIV X2 AND PG X1 ALL WITHDRAW BLOOD AND FLUSH WELL. NO FAMILY AT BEDSIDE. POC ONGOING.
--- NOTE | 2023-11-01 08:00 | NUR ---
ASSUMED CARE CARE WAS ASSUMED OF PT AT 0700, REPORT GIVEN BY EDUARDO FRANK. PROPOFOL GTT INFUSING, SEE FLOWSHEET. PT GRIMACES TO PAIN, SLIGHTLY WITHDRAWS TO NAILBED PRESSURE. PT REMAINS IN BILATERAL WRIST RESTRAINTS FOR SAFETY. PT NOT FOLLOWING COMMANDS. PT INTUBATED, VENT SETTINGS SIMV RATE 16, PS 16, PEEP 8, FiO2 30%. PT TACHYPNEIC, RESPIRATION RATE 30s AT SHIFT CHANGE. TIDAL VOLUMES 300s. ETT 23 CM AT LIP. O2 SATS > 95%. CARDIAC MONITORING REFLECTED NSR, HR 80s. SBP 130s. HAYS PATENT AND DRAINING TO GRAVITY. OG TUBE CLAMPED AT SHIFT CHANGE.
[2023-11-01 11:44] LABS: Base Excess Venous -4.2 mmol/L; Bicarbonate Venous 21.2 mmol/L (24.0-30.0); PCO2 Venous 36.3 mmHg (38-42); pH Blood Venous 7.37 (7.34-7.37)
--- NOTE | 2023-11-01 15:57 | NUR ---
PT UPDATE PROPOFOL GTT TITRATED DOWN T/O MORNING, EVENTUALLY WAS PUT ON SB. SEE FLOWSHEET. PT'S RESPIRATIONS INCREASED TO 40s-50s, HR 120s. PT HAVING INCREASED ORAL SECRETIONS, COUGHING FITS, AND ETT SECRETIONS WITH SUCTIONING. PROPOFOL GTT TURNED BACK ON, SEE FLOWSHEET. PROVIDER AWARE OF PT'S VENTILATOR TOLERANCE. VHP STARTED MORNING, GOAL 40 ML/HR. PT CONTINUED TO HAVE LIQUID STOOLS, RECTAL TUBE INSERTED. PATENT AND DRAINING TO GRAVITY. IONIZED CALCIUM LOW, CA REPLACING.
--- NOTE | 2023-11-01 17:42 | NUR ---
CONTACT WITH PATIENTS FAMILY/ADDICTION HISTORY SPOKE TO PT'S SON, MANNY JIM AND GAVE HIM UPDATE ON PT'S CONDITION. MANNY PROVIDED SOME INFORMATION REGARDING PT'S MEDICAL HISTORY. MANNY STATES HE IS ELDEST SON. SPOKE TO PT'S DAUGHTER, JR JIM AND GAVE HER AN UPDATE REGARDING PT'S STATUS. JR NOTED THAT PT HAS "HEAVY FENTANYL ADDICTION". ANSWERED DAUGHTER'S QUESTIONS REGARDING WITHDRAWAL SYMPTOM MANAGEMENT. PROVIDED EDUCATION TO WHAT FURTHER MEDICATIONS PT IS RECIEVING TO ASSIST WITH PAIN CONTROL. JR GAVE VERBAL CONSENT FOR PT TO RECIEVE BLOOD PRODUCTS. PALLIATIVE CARE NOTIFIED OF INFORMATION PROVIDED BY FAMILY
--- NOTE | 2023-11-01 17:50 | NUR ---
SHIFT SUMMARY PT REMAINS INTUBATED AND SEDATED. PT NOT FOLLOWING COMMANDS OR OPENING EYES WITH STIMULATION. AT ONE TIME PT OPENED EYES BUT DID NOT MAKE EYE CONTACT. PT RESPONDS TO PAINFUL STIMULI. PT REMAINS IN BILATERAL SOFT WRIST RESTRAINTS FOR SAFETY. PROPOFOL GTT INFUSING, SEE FLOWSHEET. VENT SETTINGS SIMV RATE 16, PS 16, PEEP 8, FiO2 30%. PT'S RESPIRATION RATE 20s AT THIS TIME. O2 SATS > 95%. PT HAVING LARGE AMOUNT OF THIN SECRETIONS MID-DAY, AMOUNT HAS IMPROVED THROUGHOUT SHIFT. SEE NURSE NOTE FOR TODAY'S SEDATION VACATION. CARDIAC MONITORING REFLECTED SINUS TACH/NSR THIS SHIFT. HR CURRENTLY 90s. SBP 130s AT THIS TIME. TF INFUSING AT GOAL. HAYS PATENT AND DRAINING TO GRAVITY. RECTAL TUBE INSERTED THIS SHIFT, PATENT AND DRAINING TO GRAVITY.
--- NOTE | 2023-11-01 20:59 | NUR ---
ASSUMPTION OF CARE: RECEIVED REPORT FROM NATE FRANK AND DWAYNE RN. PT INTUBATED AND SEDATED. DOES NOT OPEN EYES TO VERBAL STIMULI OR FOLLOW COMMANDS. PT WITHDRAWING TO PAINFUL STIMULI. PROPOFOL INCREASED TO 30 MCG/KG/MIN FOR VENTILATOR COMPLIANCE. PT BECOMES AGGITATED, RESP INCREASE AND FREQUENT COUGHING OVER THE VENT WITH STIMULATION. VENT SETTINGS PC RATE 16.0, PEEP 8.0, FIO2 30%. SPO2 >95%. MODERATE, THICK, TANNISH SECRETIONS SUCTIONED FROM ET TUBE. WINDOWS DESKTOP ENGINEER IN PLACE, ST WITH RATE 100'S. SBP 140'S. TUBE FEED INFUSING AT GOAL THROUGH OGT. RECTAL TUBE DRAINING BROWN LIQUID TO GRAVITY. HAYS PATENT AND DRAINING TO GRAVITY.
[2023-11-02] VITALS (30 sets, daily range): BP systolic 121–156; BP diastolic 63–111
[2023-11-02 04:17] LABS: BASOPHILS ABSOLUTE AUTO 0.02 K/mm3 (0.00-0.23); BASOPHILS PERCENT AUTO 0 % (0-2); EOSINOPHILS ABSOLUTE AUTO 0.08 K/mm3 (0.00-0.68); EOSINOPHILS PERCENT AUTO 1 % (0-6); Hematocrit 34.9 % (33.0-51.0); Hemoglobin 11.5 g/dL (11.5-16.0); IMMATURE GRAN ABSOLUTE AUTO 0.04 K/mm3 (0.00-0.10); IMMATURE GRAN PERCENT AUTO 0 % (0-1); LYMPHOCYTES ABSOLUTE AUTO 1.17 K/mm3 (0.84-5.20); LYMPHOCYTES PERCENT AUTO 13 % (21-46); MONOCYTES ABSOLUTE AUTO 0.85 K/mm3 (0.16-1.47); MONOCYTES PERCENT AUTO 9 % (4-13); Mean Corpuscular HGB 29.8 pg (26.0-34.0); Mean Corpuscular Volume 90 fL (80-100); Mean Platelet Volume 10.3 fL (9.1-12.4); NEUTROPHILS ABSOLUTE AUTO 7.22 K/mm3 (1.96-9.15); NEUTROPHILS PERCENT AUTO 77 % (41-73); Platelet Count 206 K/mm3 (150-400); RDW Coefficient Variation 13.2 % (11.7-14.2); Red Blood Cell Count 3.86 M/mm3 (3.80-5.20); White Blood Cell Count 9.38 K/mm3 (4.00-11.30)
[2023-11-02 04:33] LABS: Bun/Creatinine Ratio 28.4 (12.0-20.0); Calcium, Blood 8.7 mg/dL (8.5-10.1); Creatinine, Blood 2.29 mg/dL (0.40-1.00); Magnesium, Blood 2.7 mg/dL (1.6-2.4); Phosphorus, Blood 4.6 mg/dL (2.5-4.9); Potassium, Blood 4.7 mmol/L (3.5-5.5)
--- NOTE | 2023-11-02 06:27 | NUR ---
SHIFT SUMMARY: PT REMAINS INTUBATED T/O THE SHIFT. PROPOFOL SET TO SB AT APPROX 0430. PT DOES NOT OPEN EYES TO VERBAL STIMULI OR FOLLOW COMMANDS. PT DOES WITHDRAW TO PAINFUL STIMULI. VENT SETTINGS PC RATE 16, PEEP 8.0, FIO2 30%. SPO2 >95%. MODERATE THICK SECRETIONS SUCTIONED FROM ET TUBE. COPIOUS AMOUNTS OF ORAL SECRETIONS. LINE UP WORKER IN PLACE, ST WITH RATE 100'S. SBP 140'S-150'S. TUBE FEED SET TO GOAL THROUGH OGT. RECTAL TUBE DRAINING TO GRAVITY. HAYS DRAINING TO GRAVITY, YELLOWISH/GREEN URINE. POWERGLIDE TO KEYLA, INFUSING TKO. PIV'S INTACT AND SALINE LOCKED. BED LOW AND LOCKED.
--- NOTE | 2023-11-02 17:24 | NUR ---
SHIFT SUMMARY NO ACUTE CHANGES THIS SHIFT. PT REMAINS INTUBATED AND SEDATED. PT WITH PROLONGED SEDATION VACATION THIS MORNING. PT INITIALLY RESTING CALMLY, THEN BECAME INCREASINGLY RESTLESS AND THRASHING AROUND IN BED. PT DID NOT FOLLOW ANY COMMANDS WITH SEDATION VACATION. RR INCREASED TO 50'S AND PT TACHYCARDIC. PROPOFOL RESTARTED AND CONTINUES TO INFUSE AT 30 MCG/KG/MIN. PT MED WITH ATIVAN PRN. VENT SETTINGS CURRENTLY AC 16, TV 330, PEEP 8, FIO2 30%. PT WITH COPIOUS ETT SECRETIONS THIS SHIFT. OGT REMAINS IN PLACE WITH TF INFUSING AT GOAL RATE. POWERGLIDE TO KEYLA C/D/I. NS INFUSING TKO. HAYS TEMP PROBE REMAINS IN PLACE WITH YELLOW URINE OUTPUT NOTED. RECTAL TUBE REMOVED THIS MORNING. VITAL SIGNS HAVE REMAINED STABLE. SBW RESTRAINTS REMAIN IN PLACE. MULTIPLE PT FAMILY/FRIENDS IN TO SEE PT THIS SHIFT. WILL CONTINUE TO MONITOR AND REPORT OFF TO ONCOMING RN.
--- NOTE | 2023-11-02 21:19 | NUR ---
ASSUMPTION OF CARE: RECEIVED REPORT FROM MENDEZ FRANK. PT INTUBATED AND SEDATED. VENT SETTINGS VC RATE 16, PEEP 8.0, FIO2 30%. SPO2 >95%. MODERATE SECRETIONS SUCTIONED FROM ET TUBE. PROPOFOL INCREASED TO 35 MCG/KG/MIN R/T PT AGGITATION, RESTLESSNESS AND INCREASED RESPIRATIONS. CREDIT ASSESSMENT ANALYST IN PLACE, ST WITH HR 110'S-120'S. SBP 140'S. PT WITHDRAWS TO PAINFUL STIMULI, DOES NOT OPEN EYES TO VERBAL STIMULI OR FOLLOW COMMANDS. HAYS IN PLACE, DRAINING TO GRAVITY. LARGE LOOSE BROWN BM AT START OF SHIFT. POWERGLIDE TO KEYLA, INFUSING. PIV'S INTACT AND SALINE LOCKED. TUBE FEED INFUSING AT GOAL THROUGH OGT. TEMP 100.1, FAN IN PLACE. BED LOW AND LOCKED.
[2023-11-03] VITALS (37 sets, daily range): BP systolic 133–154; BP diastolic 81–97
[2023-11-03 04:50] LABS: BASOPHILS ABSOLUTE AUTO 0.03 K/mm3 (0.00-0.23); BASOPHILS PERCENT AUTO 0 % (0-2); EOSINOPHILS ABSOLUTE AUTO 0.22 K/mm3 (0.00-0.68); EOSINOPHILS PERCENT AUTO 3 % (0-6); Hematocrit 34.8 % (33.0-51.0); Hemoglobin 11.3 g/dL (11.5-16.0); IMMATURE GRAN ABSOLUTE AUTO 0.03 K/mm3 (0.00-0.10); IMMATURE GRAN PERCENT AUTO 0 % (0-1); LYMPHOCYTES PERCENT AUTO 14 % (21-46); MONOCYTES ABSOLUTE AUTO 0.94 K/mm3 (0.16-1.47); MONOCYTES PERCENT AUTO 11 % (4-13); Mean Corpuscular HGB 29.5 pg (26.0-34.0); Mean Corpuscular HGB Conc 32.5 g/dL (31.5-36.5); Mean Corpuscular Volume 91 fL (80-100); Mean Platelet Volume 10.7 fL (9.1-12.4); NEUTROPHILS ABSOLUTE AUTO 6.01 K/mm3 (1.96-9.15); NEUTROPHILS PERCENT AUTO 71 % (41-73); Platelet Count 217 K/mm3 (150-400); RDW Coefficient Variation 13.4 % (11.7-14.2); RDW Standard Deviation 44.6 fL (35.1-46.3); Red Blood Cell Count 3.83 M/mm3 (3.80-5.20); White Blood Cell Count 8.43 K/mm3 (4.00-11.30)
[2023-11-03 05:38] LABS: Bun/Creatinine Ratio 31.4 (12.0-20.0); Calcium, Blood 8.2 mg/dL (8.5-10.1); Creatinine, Blood 1.72 mg/dL (0.40-1.00); Magnesium, Blood 2.4 mg/dL (1.6-2.4); Phosphorus, Blood 3.7 mg/dL (2.5-4.9); Potassium, Blood 4.7 mmol/L (3.5-5.5)
--- NOTE | 2023-11-03 05:47 | NUR ---
SHIFT SUMMARY: NO ACUTE EVENTS T/O THE SHIFT. PT REMAINS INTUBATED WITH SETTINGS VC RATE 16, PEEP 8.0, FIO2 30%. SPO2 MAINTAINING >95%. PROPOFOL SET TO SB AT 0400 FOR SEDATION VACATION. PT WAKING UP, OPENS EYES TO VERBAL STIMULI AND FOLLOWS SIMPLE COMMANDS. ABLE TO SHAKE HEAD YES AND NO. ACCOUNTANT HELPER IN PLACE, ST, RATE 100'S. SBP 140'S. TUBE FEED INFUSING AT GOAL THROUGH OGT. PT HAVING FREQUENT BOWEL MOVEMENTS T/O THE SHIFT. HAYS REMAINS PATENT AND DRAINING TO GRAVITY. POWERGLIDE TO KEYLA, SALINE LOCKED. PIV'S INTACT AND SALINE LOCKED. UPDATED DAUGHTER IN THE NIGHT ON PT CONDITION. BED LOW AND LOCKED.
--- NOTE | 2023-11-03 17:03 | NUR ---
SHIFT SUMMARY NO ACUTE CHANGES THIS SHIFT. PT REMAINS INTUBATED AND SEDATED. PT DID NOT TOLERATE PROLONGED SEDATION VACATION THIS MORNING. PT BECAME INCREASINGLY AGITATED AND NOT ABLE TO FOLLOW COMMANDS OR BE REDIRECTED. PT SEDATED WITH PROPOFOL AT 30 MCG/KG/MIN AT THIS TIME. VENT SETTINGS REMAIN AC 16, TV 330, PEEP 8, FIO2 30%. PT CONTINUES WITH COPIOUS ETT SECRETIONS THIS SHIFT. POWERGLIDE TO KEYLA C/D/I. PIV'S C/D/I. NS INFUSING TKO. OGT REMAINS IN PLACE WITH TF INFUSING AT GOAL RATE. HAYS TEMP PROBE REMAINS IN PLACE WITH CLEAR YELLOW OUTPUT NOTED. SBW RESTRAINTS IN PLACE. VITAL SIGNS STABLE. PT DAUGHTER CALLED IN AND UPDATED MULTIPLE TIMES THIS SHIFT. WILL CONTINUE TO MONITOR AND REPORT OFF TO ONCOMING RN.
--- NOTE | 2023-11-03 19:28 | NUR ---
ASSUMED CARE AT 1900 PATIENT IS INTUBATED AND SEDATED ON PROPOFOL, OPENS EYES AND FOLLOWS SOME SIMPLE COMMANDS AT TIMES. 02 SATS 98% ON VENT AC VC+ 16/330/5/30%, RR 24, LARGE AMOUNT OF SECRETIONS SUCTIONED FROM MOUTH AND ETT. HR SR 89, BP STABLE. OG WITH TUBE FEED AT GOAL RATE. TEMP HAYS PATENT AND DRAINING TO GRAVITY. PATIENT REPOSTIONED AND ORAL CARE DONE.
[2023-11-04] VITALS (39 sets, daily range): BP systolic 129–151; BP diastolic 71–96
[2023-11-04 04:17] LABS: BASOPHILS ABSOLUTE AUTO 0.06 K/mm3 (0.00-0.23); BASOPHILS PERCENT AUTO 1 % (0-2); EOSINOPHILS ABSOLUTE AUTO 0.47 K/mm3 (0.00-0.68); EOSINOPHILS PERCENT AUTO 6 % (0-6); Hematocrit 34.7 % (33.0-51.0); Hemoglobin 11.4 g/dL (11.5-16.0); IMMATURE GRAN ABSOLUTE AUTO 0.03 K/mm3 (0.00-0.10); IMMATURE GRAN PERCENT AUTO 0 % (0-1); LYMPHOCYTES ABSOLUTE AUTO 1.72 K/mm3 (0.84-5.20); LYMPHOCYTES PERCENT AUTO 23 % (21-46); MONOCYTES ABSOLUTE AUTO 0.75 K/mm3 (0.16-1.47); MONOCYTES PERCENT AUTO 10 % (4-13); Mean Corpuscular HGB 30.1 pg (26.0-34.0); Mean Corpuscular HGB Conc 32.9 g/dL (31.5-36.5); Mean Corpuscular Volume 92 fL (80-100); Mean Platelet Volume 10.5 fL (9.1-12.4); NEUTROPHILS ABSOLUTE AUTO 4.36 K/mm3 (1.96-9.15); NEUTROPHILS PERCENT AUTO 59 % (41-73); Platelet Count 218 K/mm3 (150-400); RDW Coefficient Variation 13.3 % (11.7-14.2); RDW Standard Deviation 45.1 fL (35.1-46.3); Red Blood Cell Count 3.79 M/mm3 (3.80-5.20); White Blood Cell Count 7.39 K/mm3 (4.00-11.30)
[2023-11-04 04:41] LABS: Magnesium, Blood 2.4 mg/dL (1.6-2.4)
[2023-11-04 04:42] LABS: Bun/Creatinine Ratio 33.3 (12.0-20.0); Calcium, Blood 7.8 mg/dL (8.5-10.1); Creatinine, Blood 1.47 mg/dL (0.40-1.00); Phosphorus, Blood 3.6 mg/dL (2.5-4.9); Potassium, Blood 4.4 mmol/L (3.5-5.5)
--- NOTE | 2023-11-04 05:20 | NUR ---
SHIFT SUMMARY PATIENT REMAINS INTUBATED, SEDATION TITRATED OFF AT 0515 THIS AM. NO CHANGES ON THE VENT THROUGH THE NIGHT. TUBE FEED REMAINS INFUSING. TEMP HAYS PATENT AND DRAINING TO GRAVITY. BED BATH DONE. CALL LIGHT IN REACH
--- NOTE | 2023-11-04 14:37 | NUR ---
Pt extubated at 1420. Pt tolerated procedure well, currently on RA, RT at bedside. Restraints DC'd.
--- NOTE | 2023-11-04 18:08 | NUR ---
Shift summary. Pt resting in bed. Son at bedside. Extubated this afternoon with good results, see note. Currently on RA, NS TKO. Per Dr. Godinez, ok to have sips of water and some jello. Neal in place, draining to gravity. See chart for further details. Will report off to nightshift RN.
[2023-11-05] VITALS (13 sets, daily range): BP systolic 129–155; BP diastolic 65–89
[2023-11-05 03:46] LABS: BASOPHILS ABSOLUTE AUTO 0.05 K/mm3 (0.00-0.23); BASOPHILS PERCENT AUTO 1 % (0-2); EOSINOPHILS ABSOLUTE AUTO 0.39 K/mm3 (0.00-0.68); EOSINOPHILS PERCENT AUTO 6 % (0-6); Hematocrit 29.8 % (33.0-51.0); Hemoglobin 9.7 g/dL (11.5-16.0); IMMATURE GRAN ABSOLUTE AUTO 0.03 K/mm3 (0.00-0.10); IMMATURE GRAN PERCENT AUTO 0 % (0-1); LYMPHOCYTES PERCENT AUTO 21 % (21-46); MONOCYTES ABSOLUTE AUTO 0.55 K/mm3 (0.16-1.47); MONOCYTES PERCENT AUTO 8 % (4-13); Mean Corpuscular HGB 29.9 pg (26.0-34.0); Mean Corpuscular HGB Conc 32.6 g/dL (31.5-36.5); Mean Corpuscular Volume 92 fL (80-100); Mean Platelet Volume 10.3 fL (9.1-12.4); NEUTROPHILS ABSOLUTE AUTO 4.39 K/mm3 (1.96-9.15); NEUTROPHILS PERCENT AUTO 65 % (41-73); Platelet Count 227 K/mm3 (150-400); RDW Coefficient Variation 13.1 % (11.7-14.2); RDW Standard Deviation 43.3 fL (35.1-46.3); Red Blood Cell Count 3.24 M/mm3 (3.80-5.20); White Blood Cell Count 6.81 K/mm3 (4.00-11.30)
[2023-11-05 04:02] LABS: Bun/Creatinine Ratio 26.4 (12.0-20.0); Calcium, Blood 8.4 mg/dL (8.5-10.1); Creatinine, Blood 1.48 mg/dL (0.40-1.00); Potassium, Blood 3.8 mmol/L (3.5-5.5)
--- NOTE | 2023-11-05 08:40 | NUR ---
INITIAL ASSESSMENT PATIENT ALERT AND ORIENTED X 4, AFEBRILE. PATIENT DENIES PAIN. FLAT AFFECT NOTED. SPEECH SOFT. PATIENT WEAK, SBA TO CHAIR. PATIENT SATTING 90% AND GREATER ON RA. LUNGS CLEAR THROUGHOUT. PATIENT IN SR, HR IN THE 60S. SBP IN THE 150S. UPPER DENTURES CLEANED AND PLACED IN. NO BOTTOM DENTURES IN BELONGINGS BAG. PATIENT PLACED ON FULL LIQUID DIET AND IS TOLERATING WELL EXCEPT FOR WEAKNESS IN ARMS. SAÚL MANCERA'Ade THIS AM. SKIN PALE AND COOL. IVS FLUSHED AND SALINE LOCKED EXCEPT FOR IV WITH ANTIBIOTIC INFUSING. CALL LIGHT IN REACH. TAB ALARM ON. CARE CONTINUES.
--- NOTE | 2023-11-05 12:00 | NUR ---
NO COMPLAINTS AT THIS TIME. NO ACUTE CHANGES TO NOTE ON. CARE CONTINUES.
--- NOTE | 2023-11-05 16:45 | NUR ---
PATIENT AFEBRILE. HR IN THE 80S. SBP IN THE 140S. COMPLETE BED BATH PERFORMED. NO COMPLAINTS AT THIS TIME. CARE CONTINUES.
--- NOTE | 2023-11-05 18:43 | NUR ---
SHIFT SUMMARY PATIENT REMAINED ALERT AND ORIENTED X 4 BUT DID HAVE LITTLE PERIODS OF CONFUSION OCCASIONALLY DURING SHIFT. PATIENT REMAINED WITH SOFT SPEECH. PATIENT REMAINS SBA TRANSFER. PATIENT REMAINED AFEBRILE. PATIENT HAD NO COMPLAINTS OF PAIN THIS SHIFT. PATIENT REMAINED SATTING 90% AND GREATER ON RA. PATIENT REMAINED SR WITH PACS, HR 60S TO 80S. SBP 140S TO 150S. PATIENT INCREASED TO MECHANICAL SOFT DIET TODAY AND HAS BEEN TOLERATING WELL. NOT INCREASING DIET FURTHER AT THIS TIME BECAUSE PATIENT ONLY HAS TOP DENTURES. BOTTOM DENTURES MUST BE AT HOME. PATIENT HAD A FEW LIQUID BROWN STOOLS THIS SHIFT. PATIENT VOIDED 3 TIMES THIS SHIFT. SAÚL MANCERA'Ade THIS AM AND ATTENDS IN PLACE. NO CHANGES TO SKIN NOTED. PATIENT REPOSITIONED SELF THROUGHOUT DAY. PATIENT REMAINED SBA TO CHAIR AND TO COMMODE. PATIENT HAD COMPLETE BED BATH THIS SHIFT. BED LOW, CALL LIGHT IN REACH. REPORT WILL BE GIVEN TO ASSUMING SCHOOL SOCIAL WORKER NURSE SHORTLY.
--- NOTE | 2023-11-05 18:56 | NUR ---
Pt more frail today having more rib pain. Secretions have increased. will monitor pain. 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 Encourage her to report pain and keep fighting. She want to remain full treatment due to her lillian and bliefs. She understand she may need to go back on vent. will continue to monitor pain and give support.
--- NOTE | 2023-11-05 19:29 | NUR ---
ASSUMED CARE OF PT AT 1900. REPORT RECEIVED AT BEDSIDE. PT PRESENTS IN BED FINISHING HER DINNER. PT'S SON AT BEDSIDE. NO COMPLAINTS AT THIS TIME. ENCOURAGED PT TO USE CALL LIGHT SYSTEM FOR NEEDS, AND FOR GETTING UP OUT OF BED TO COMMODE.
--- NOTE | 2023-11-05 19:30 | NUR ---
WILL REVIEW CHART AND PLAN OF CARE FOR THIS PT.
--- NOTE | 2023-11-05 23:49 | NUR ---
JOSEPH CAME IN TO SEE PT STATING SHE WAS THE PATIENT'S DAUGHTER. SHE HAD ASKED PT IF SHE COULD HAVE HER "FOOD STAMP CARD" PT TOLD HER THAT HER DAUGHTER HAD THIS. AND IN FACT THIS WAS NOT PT'S DAUGHTER. PT DOES STATE THAT THIS PERSON IS "LIKE MY DAUGHTER". IN FACT, PT'S DAUGHTER DID CALL TO CHECK ON PT. JR ASKED FOR UPDATE ON HER MOTHER. THIS GIVEN PT CURRENTLY RESTING IN BED.
[2023-11-06] VITALS (9 sets, daily range): BP systolic 123–151; BP diastolic 76–96
[2023-11-06 05:45] LABS: BASOPHILS ABSOLUTE AUTO 0.08 K/mm3 (0.00-0.23); BASOPHILS PERCENT AUTO 1 % (0-2); EOSINOPHILS ABSOLUTE AUTO 0.41 K/mm3 (0.00-0.68); EOSINOPHILS PERCENT AUTO 5 % (0-6); Hematocrit 33.6 % (33.0-51.0); Hemoglobin 10.5 g/dL (11.5-16.0); IMMATURE GRAN ABSOLUTE AUTO 0.02 K/mm3 (0.00-0.10); IMMATURE GRAN PERCENT AUTO 0 % (0-1); LYMPHOCYTES ABSOLUTE AUTO 1.59 K/mm3 (0.84-5.20); LYMPHOCYTES PERCENT AUTO 19 % (21-46); MONOCYTES ABSOLUTE AUTO 0.68 K/mm3 (0.16-1.47); MONOCYTES PERCENT AUTO 8 % (4-13); Mean Corpuscular HGB 30.2 pg (26.0-34.0); Mean Corpuscular HGB Conc 31.3 g/dL (31.5-36.5); Mean Corpuscular Volume 97 fL (80-100); Mean Platelet Volume 10.2 fL (9.1-12.4); NEUTROPHILS ABSOLUTE AUTO 5.41 K/mm3 (1.96-9.15); NEUTROPHILS PERCENT AUTO 66 % (41-73); Platelet Count 269 K/mm3 (150-400); RDW Coefficient Variation 12.8 % (11.7-14.2); RDW Standard Deviation 44.7 fL (35.1-46.3); Red Blood Cell Count 3.48 M/mm3 (3.80-5.20); White Blood Cell Count 8.19 K/mm3 (4.00-11.30)
[2023-11-06 06:06] LABS: Bun/Creatinine Ratio 24.6 (12.0-20.0); Calcium, Blood 8.3 mg/dL (8.5-10.1); Creatinine, Blood 1.3 mg/dL (0.40-1.00)
--- NOTE | 2023-11-06 07:15 | NUR ---
PT HAS SAT UP AT SIDE OF BED SEVERAL TIMES THIS NIGHT. HAS HAD TROUBLE SLEEPING. DID GET ANXIOUS WHEREAS SHE WAS MEDICATED WITH 1 MG ATIVAN. WAS ABLE TO TAKE A SHORT NAP AFTERWARDS. REPORT GIVEN TO ONCOMING RN.
--- NOTE | 2023-11-06 08:45 | NUR ---
INITIAL ASSESSMENT PATIENT LETHARGIC. PATIENT ORIENTED X 4. PATIENT HAS TEMP OF 99.2 DEGREES FAHRENHEIT THIS AM. FLAT AFFECT NOTED. SPEECH QUIET. PATIENT 1 PERSON ASSIST FOR WEAKNESS AND UNSTEADINESS ON FEET. PATIENT DENIES PAIN THIS AM. PATIENT SATTING 90% AND GREATER ON RA. PATIENT SOB WITH EXERTION. PATIENT IN SR, HR IN THE 80S. SBP 130S TO 140S. BOTTOM DENTURES ARE AT HOME SO PATIENT ON MECHANICAL SOFT DIET. NOT MUCH APPETITE THIS AM. ATTENDS IN PLACE FOR OCCASIONAL INCONTINENCE. URINE TEA COLORED THIS AM. ANUS/ BONY AREA REDDENED AND TENDER. IVS FLUSHED AND SALINE LOCKED. BED LOW, CALL LIGHT IN REACH, BED ALARM ON. CARE CONTINUES.
--- NOTE | 2023-11-06 11:17 | NUR ---
PATIENT TRANSFERRED TO MEDICAL FLOOR, ROOM 332. DAUGHTER INFORMED OF TRANSFER. ALL BELONINGS SENT WITH PATIENT.
--- NOTE | 2023-11-06 17:16 | NUR ---
RECIEVED A CALL FROM TELE- PT TELE IS SHOWING ST ELEVATION OF 2.3. CALLED DR WANG AND SHE ORDERED STAT EKG.
--- NOTE | 2023-11-06 17:40 | NUR ---
CALLED DR WANG WITH RESULT OF EKG- PT AWAKE AND TALKING TO STAFF AT THE TIME OF EKG. DENIES CP OR PRESSURE. DENIES SOB AND DIZZINESS. MD AWARE OF ST ELEVATION AND ORDERED DC TELE AT THIS TIME.
--- NOTE | 2023-11-06 18:34 | NUR ---
Pt tolerating her pain brief therputic visit. Will continue to monitor closely as she wants to continue to fight.
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
[2023-11-07 03:02] VITALS: BP 145/89
--- NOTE | 2023-11-07 04:04 | NUR ---
SHIFT SUMMARY PT A&OX4 AND ANSWERS QUESTIONS APPROPRIATELY. PT REQUESTED TO AMBULATE AND AMBULATED ON UNIT FROM ROOM 332 AROUND THE STAFFORD BACK TO ROOM. NO COMPLAINTS OF SOB, WEAKNESS, OR PAIN DURING AMBULATION. PT VOICES REMORSE CONCERNING RECENT OF AND OTHER FAMILY MEMBERS. THERAPEUTIC COMMUNICATION UTELIZED, PT STILL SHOWING A WITHDRAWN DEMEANOR. VSS. NO ACUTE EVENTS DURING SHIFT. PT LEFT IN A POSITION OF SAFETY WITH APPROPRIATE FALL PRECAUTIONS IN PLACE AND CALL LIGHT IN REACH.
[2023-11-07 07:30] VITALS: BP 140/86
[2023-11-07] MEDS ORDERED: MELADOX PO (11:56)
[2023-11-07] MEDS ORDERED: ACET325 PO (11:56)
--- NOTE | 2023-11-07 14:15 | NUR ---
PT DISCHARGED FROM THE UNIT. IV REMOVED, PG REMOVED. DISCHARGE INSTRUCTIONS REVIEWED. MEDICATIONS FAXED TO [facility]. PT LEFT UNIT VIA WHEELCHAIR. FAMILY TO DRIVE HOME
== END 2023-11-07 13:58 | disposition home health service (06) | DRG 870 ==
LOC: ER 13:45 → ICUE 15:56 → MEDS 11-06 11:16 → ENPENDDIS 11-07 09:38 → MEDS 11-07 13:58
PROVIDERS: Emergency Medicine; Family Medicine; Internal Medicine Critical Care Medicine; ADMIT Internal Medicine
PROC: 5A1955Z Respiratory Ventilation, Greater than 96 Consecutive Hours (ICD-10-PCS; principal; 2023-10-29)
PROC: 0BH17EZ Insertion of Endotracheal Airway into Trachea, Via Natural or Artificial Opening (ICD-10-PCS; 2023-10-29)
PROC: 5A09457 Assistance with Respiratory Ventilation, 24-96 Consecutive Hours, Continuous Positive Airway Pressure (ICD-10-PCS; 2023-10-29)
PROC: 02HV33Z Insertion of Infusion Device into Superior Vena Cava, Percutaneous Approach (ICD-10-PCS; 2023-10-29)
DX: A41.9 Sepsis, unspecified organism (principal); J96.01 Acute respiratory failure with hypoxia; I50.23 Acute on chronic systolic (congestive) heart failure; J18.9 Pneumonia, unspecified organism; J96.02 Acute respiratory failure with hypercapnia; G92.8 Other toxic encephalopathy; R65.21 Severe sepsis with septic shock; J44.1 Chronic obstructive pulmonary disease with (acute) exacerbation; J44.0 Chronic obstructive pulmonary disease with (acute) lower respiratory infection; N17.9 Acute kidney failure, unspecified; E87.0 Hyperosmolality and hypernatremia; N18.30 Chronic kidney disease, stage 3 unspecified; R53.81 Other malaise; M10.9 Gout, unspecified; F17.210 Nicotine dependence, cigarettes, uncomplicated; F12.90 Cannabis use, unspecified, uncomplicated; F14.90 Cocaine use, unspecified, uncomplicated; F15.10 Other stimulant abuse, uncomplicated; D64.9 Anemia, unspecified; K21.9 Gastro-esophageal reflux disease without esophagitis; Z28.21 Immunization not carried out because of patient refusal
CPT/HCPCS: 0202U; 31720; 36415; 36556; 36600; 51702; 70450; 71045; 71260; 80047; 80048; 80053; 80069; 81001; 82330; 82375; 82550; 82803; 83605; 83735; 83880; 84100; 84484; 85014; 85025; 85610; 87040; 87070; 87205; 93005; 93010; 94002; 94003; 94640; 94644; 94660; 94664; 94760; 94762; 96365-59; 96367-59; 96375-59; 97110; 97161; 97165; 97535; 99285-25; A9270; C1751; C8929; C9113; J0456; J0696; J1650; J1940; J2060; J2543; J2704; J3010; J3475; J7050; J7060; J7120; Q9957; Q9967

== ENCOUNTER → 2023-12-05 | Outpatient (CLI) | payer OTHER ==
[~2023-12-05] MED LIST changes: +MELADOX PO
[2023-12-05 20:30] LABS: Creatinine Urine 53.3 mg/dL (27.00-270.00); Protein, Urine Quantitative 69.9 mg/dL (0.0-11.9)
== END ==
LOC: LAB FUT 11-24 13:10 → LAB SHORT 08:00 → LAB 08:00
PROVIDERS: Internal Medicine Nephrology
DX: N18.30 Chronic kidney disease, stage 3 unspecified (principal); D63.1 Anemia in chronic kidney disease; R80.9 Proteinuria, unspecified
CPT/HCPCS: 81050; 82043; 82570; 84156

== ENCOUNTER 2024-06-04 09:20 | Emergency (ER) | payer OTHER ==
[~2024-06-04] VITALS: Ht 167.6 cm; Wt 54.4 kg
[~2024-06-04 09:20] MED LIST changes: +PRED20 PO
[2024-06-04] MEDS ORDERED: Ondansetron HCl 2 MG / ML 2ML Vial IV ONE (10:00)
[2024-06-04] MEDS ORDERED: buprenorphine HCL 2 MG TAB.SUBL SL ONE (10:20)
[2024-06-04 10:26] LABS: BASOPHILS ABSOLUTE AUTO 0.07 K/mm3 (0.00-0.23); BASOPHILS PERCENT AUTO 1 % (0-2); EOSINOPHILS ABSOLUTE AUTO 0.26 K/mm3 (0.00-0.68); EOSINOPHILS PERCENT AUTO 3 % (0-6); Hematocrit 38.9 % (33.0-51.0); Hemoglobin 13.2 g/dL (11.5-16.0); IMMATURE GRAN ABSOLUTE AUTO 0.02 K/mm3 (0.00-0.10); IMMATURE GRAN PERCENT AUTO 0 % (0-1); LYMPHOCYTES ABSOLUTE AUTO 1.71 K/mm3 (0.84-5.20); LYMPHOCYTES PERCENT AUTO 20 % (21-46); MONOCYTES ABSOLUTE AUTO 0.93 K/mm3 (0.16-1.47); MONOCYTES PERCENT AUTO 11 % (4-13); Mean Corpuscular HGB 30.1 pg (26.0-34.0); Mean Corpuscular HGB Conc 33.9 g/dL (31.5-36.5); Mean Corpuscular Volume 89 fL (80-100); Mean Platelet Volume 9.9 fL (9.1-12.4); NEUTROPHILS ABSOLUTE AUTO 5.66 K/mm3 (1.96-9.15); NEUTROPHILS PERCENT AUTO 65 % (41-73); Platelet Count 331 K/mm3 (150-400); RDW Coefficient Variation 12.4 % (11.7-14.2); RDW Standard Deviation 40.5 fL (35.1-46.3); Red Blood Cell Count 4.38 M/mm3 (3.80-5.20); White Blood Cell Count 8.65 K/mm3 (4.00-11.30)
[2024-06-04] MEDS ORDERED: PROZAC2010 (10:35)
[2024-06-04 10:48] LABS: Albumin, Blood 3.4 g/dL (3.4-5.0); Albumin/Globulin Ratio 1.1 (0.8-1.8); Bilirubin, Total 0.5 mg/dL (0.1-1.0); Bun/Creatinine Ratio 24.7 (12.0-20.0); Calcium, Blood 8.7 mg/dL (8.5-10.1); Creatinine, Blood 2.47 mg/dL (0.40-1.00); Potassium, Blood 3.3 mmol/L (3.5-5.5); Total Protein, Blood 6.4 g/dL (6.4-8.2)
[2024-06-04 11:00] VITALS: BP 118/63
[2024-06-04] MEDS ORDERED: SUBOXONE 8 MG-1 EACH SL (11:58)
== END 2024-06-04 12:30 | disposition home or self-care (01) ==
LOC: ER 09:20
PROVIDERS: Emergency Medicine
DX: R06.02 Shortness of breath (principal); F11.93 Opioid use, unspecified with withdrawal; J44.9 Chronic obstructive pulmonary disease, unspecified; F17.210 Nicotine dependence, cigarettes, uncomplicated; Z79.52 Long term (current) use of systemic steroids; Z79.899 Other long term (current) drug therapy
CPT/HCPCS: 71046; 80053; 83880; 84484; 85025; 93005; 93010; 96374; 99284-25; J2405

== ENCOUNTER 2024-06-09 12:04 | Emergency (ER) | payer OTHER ==
[~2024-06-09] VITALS: Ht 157.5 cm; Wt 59.0 kg
[~2024-06-09 12:04] MED LIST changes: +PROZAC2010; +SUBOXONE 8 MG-1 EACH SL
[2024-06-09 12:07] VITALS: BP 147/116
[2024-06-09] MEDS ORDERED: SUBOXONE 8 MG-1 EACH SL (17:47)
[2024-06-10] MEDS ORDERED: ONDA4ODT MM (14:54)
== END 2024-06-09 13:35 | disposition home or self-care (01) ==
LOC: ER 12:04
DX: Z00.8 Encounter for other general examination (principal); J44.89 Other specified chronic obstructive pulmonary disease; F17.210 Nicotine dependence, cigarettes, uncomplicated; Z79.899 Other long term (current) drug therapy; Z79.52 Long term (current) use of systemic steroids
CPT/HCPCS: 99283

== ENCOUNTER 2024-06-09 17:21 | Emergency (ER) | payer OTHER ==
[~2024-06-09] VITALS: Ht 157.5 cm; Wt 59.0 kg
[2024-06-09] MEDS ORDERED: SUBOXONE 8 MG-1 EACH SL ×2 (17:47)
[2024-06-09] MEDS ORDERED: Buprenorphine HCL/Naloxone HCL 8MG-2MG Tab SL ONE (17:50)
[2024-06-09 18:11] VITALS: BP 147/80
[2024-06-10] MEDS ORDERED: ONDA4ODT MM (14:54)
== END 2024-06-09 18:10 | disposition home or self-care (01) ==
LOC: ER 17:21
DX: F11.90 Opioid use, unspecified, uncomplicated (principal); I50.9 Heart failure, unspecified; N18.30 Chronic kidney disease, stage 3 unspecified; J44.9 Chronic obstructive pulmonary disease, unspecified; F17.210 Nicotine dependence, cigarettes, uncomplicated; Z79.899 Other long term (current) drug therapy
CPT/HCPCS: A9270

== ENCOUNTER 2024-06-10 14:07 | Emergency (ER) | payer OTHER ==
[~2024-06-10] VITALS: Ht 157.5 cm; Wt 59.0 kg
[2024-06-10 14:50] VITALS: BP 155/98
[2024-06-10] MEDS ORDERED: ONDA4ODT MM (14:54)
[2024-06-10] MEDS ORDERED: Ondansetron 4 MG SoluTab SL ONE (14:55)
[2024-06-10] MEDS ORDERED: Buprenorphine HCL/Naloxone HCL 8MG-2MG Tab SL ONE ×2 (14:55→15:05)
== END 2024-06-10 15:05 | disposition home or self-care (01) ==
LOC: ER 14:07
DX: F11.90 Opioid use, unspecified, uncomplicated (principal); R11.0 Nausea; Z79.899 Other long term (current) drug therapy; Z79.52 Long term (current) use of systemic steroids; I50.9 Heart failure, unspecified; M10.9 Gout, unspecified; N18.30 Chronic kidney disease, stage 3 unspecified; J44.9 Chronic obstructive pulmonary disease, unspecified; F17.210 Nicotine dependence, cigarettes, uncomplicated
CPT/HCPCS: A9270

== ENCOUNTER 2024-06-14 07:31 | Inpatient (IN) | payer OTHER ==
[~2024-06-14] VITALS: Ht 157.5 cm; Wt 61.3 kg
[~2024-06-14 07:31] MED LIST changes: +ONDA4ODT MM
[2024-06-14] MEDS ORDERED: Albuterol 2.5 MG/3 ML VIAL INH SCH ×2 (08:30→10:00)
[2024-06-14] MEDS ORDERED: Ipratropium/Albuterol SulF 2.5-0.5MG/3 ML Amp INH ONE (08:30)
[2024-06-14] MEDS ORDERED: MethylPREDNISolone Sod Succ 125 MG Vial IV ONE (08:30)
[2024-06-14 08:39] LABS: BASOPHILS ABSOLUTE AUTO 0.04 K/mm3 (0.00-0.23); BASOPHILS PERCENT AUTO 1 % (0-2); EOSINOPHILS ABSOLUTE AUTO 0.34 K/mm3 (0.00-0.68); EOSINOPHILS PERCENT AUTO 6 % (0-6); Hematocrit 38.8 % (33.0-51.0); Hemoglobin 12.6 g/dL (11.5-16.0); IMMATURE GRAN ABSOLUTE AUTO 0.01 K/mm3 (0.00-0.10); IMMATURE GRAN PERCENT AUTO 0 % (0-1); LYMPHOCYTES ABSOLUTE AUTO 1.93 K/mm3 (0.84-5.20); LYMPHOCYTES PERCENT AUTO 32 % (21-46); MONOCYTES PERCENT AUTO 8 % (4-13); Mean Corpuscular HGB 30.1 pg (26.0-34.0); Mean Corpuscular HGB Conc 32.5 g/dL (31.5-36.5); Mean Corpuscular Volume 93 fL (80-100); Mean Platelet Volume 10.3 fL (9.1-12.4); NEUTROPHILS PERCENT AUTO 53 % (41-73); Platelet Count 268 K/mm3 (150-400); RDW Standard Deviation 40.8 fL (35.1-46.3); Red Blood Cell Count 4.19 M/mm3 (3.80-5.20); White Blood Cell Count 6.02 K/mm3 (4.00-11.30)
[2024-06-14 08:48] LABS: Base Excess Venous 2.5 mmol/L; Bicarbonate Venous 25.3 mmol/L (24.0-30.0); PCO2 Venous 53 mmHg (38-42); pH Blood Venous 7.33 (7.34-7.37)
[2024-06-14 08:57] LABS: Albumin, Blood 2.9 g/dL (3.4-5.0); Albumin/Globulin Ratio 0.9 (0.8-1.8); Bilirubin, Total 0.3 mg/dL (0.1-1.0); Bun/Creatinine Ratio 16.3 (12.0-20.0); Calcium, Blood 8.6 mg/dL (8.5-10.1); Creatinine, Blood 1.53 mg/dL (0.40-1.00); Globulin, Blood 3.3 g/dL (2.2-4.0); Potassium, Blood 4.5 mmol/L (3.5-5.5); Total Protein, Blood 6.2 g/dL (6.4-8.2)
[2024-06-14 09:30] LABS: Influenza A, PCR NEGATIVE (NEGATIVE); Influenza B, PCR NEGATIVE (NEGATIVE); Resp Syncytial Virus, PCR NEGATIVE (NEGATIVE); SARS-Cov-2 (COVID-19) PCR, MMC NEGATIVE (NEGATIVE)
[2024-06-14] MEDS ORDERED: Azithromycin 250 MG Tab PO ONE (09:55)
[2024-06-14 10:41] LABS: Bicarbonate Venous 23.4 mmol/L (24.0-30.0); PCO2 Venous 39 mmHg (38-42); pH Blood Venous 7.39 (7.34-7.37)
[2024-06-14 10:42] LABS: Base Excess Venous -1.4 mmol/L
[2024-06-14] MEDS ORDERED: Acetaminophen 325 MG TABLET PO PRN (10:50)
[2024-06-14] MEDS ORDERED: Buprenorphine HCL/Naloxone HCL 2-0.5MG 1 EA SL PRN (11:15)
[2024-06-14] MEDS ORDERED: MethylPREDNISolone Sod Succ 125 MG Vial IV SCH (12:00)
[2024-06-14] MEDS ORDERED: CefTRIAXone Sodium 1,000 MG in NS 100 ML IV SCH (12:00)
[2024-06-14] MEDS ORDERED: Ipratropium/Albuterol SulF 2.5-0.5MG/3 ML Amp INH SCH (12:20)
[2024-06-14 12:38] VITALS: BP 108/82
[2024-06-14] MEDS ORDERED: BUME2 PO (12:50)
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
[2024-06-14 13:59] LABS: U Amphetamine Screen Not Detected; U Barbituate Screen Not Detected; U Benzodiazapine Screen DETECTED; U Buprenorphine Screen DETECTED; U Cannabinoids Screen DETECTED; U Cocaine Screen Not Detected; U Methadone Screen Not Detected; U Methamphetamine Screen Not Detected; U Opiates Screen Not Detected; U Oxycodone Screen Not Detected; U Phencyclidine Screen Not Detected
[2024-06-14 16:15] VITALS: BP 133/65
[2024-06-14] MEDS ORDERED: LORazepam 1 MG Tab PO PRN (17:00)
[2024-06-14] MEDS ORDERED: Carvedilol 6.25 MG Tab PO SCH ×2 (17:00)
[2024-06-14] MEDS ORDERED: LORazepam 1 MG Tab PO ONE (17:00)
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
[2024-06-14 20:20] VITALS: BP 139/84
[2024-06-14 20:55] VITALS: BP 139/80
[2024-06-14] MEDS ORDERED: Lactobacil 2-S.Thermo-Bifido 1 1 Cap PO SCH (21:00)
[2024-06-15 04:51] VITALS: BP 138/75
[2024-06-15 05:19] LABS: BASOPHILS ABSOLUTE AUTO 0.04 K/mm3 (0.00-0.23); BASOPHILS PERCENT AUTO 0 % (0-2); EOSINOPHILS PERCENT AUTO 0 % (0-6); Hematocrit 39.8 % (33.0-51.0); Hemoglobin 13.6 g/dL (11.5-16.0); IMMATURE GRAN ABSOLUTE AUTO 0.13 K/mm3 (0.00-0.10); IMMATURE GRAN PERCENT AUTO 1 % (0-1); LYMPHOCYTES ABSOLUTE AUTO 0.69 K/mm3 (0.84-5.20); LYMPHOCYTES PERCENT AUTO 3 % (21-46); MONOCYTES PERCENT AUTO 1 % (4-13); Mean Corpuscular HGB 30.6 pg (26.0-34.0); Mean Corpuscular HGB Conc 34.2 g/dL (31.5-36.5); Mean Corpuscular Volume 89 fL (80-100); Mean Platelet Volume 10.8 fL (9.1-12.4); NEUTROPHILS ABSOLUTE AUTO 20.68 K/mm3 (1.96-9.15); NEUTROPHILS PERCENT AUTO 95 % (41-73); Platelet Count 292 K/mm3 (150-400); RDW Coefficient Variation 11.8 % (11.7-14.2); RDW Standard Deviation 37.6 fL (35.1-46.3); Red Blood Cell Count 4.45 M/mm3 (3.80-5.20); White Blood Cell Count 21.74 K/mm3 (4.00-11.30)
[2024-06-15 05:51] LABS: Albumin, Blood 2.8 g/dL (3.4-5.0); Albumin/Globulin Ratio 0.8 (0.8-1.8); Bilirubin, Total 0.3 mg/dL (0.1-1.0); Bun/Creatinine Ratio 23.9 (12.0-20.0); Creatinine, Blood 1.38 mg/dL (0.40-1.00); Globulin, Blood 3.5 g/dL (2.2-4.0); Potassium, Blood 4.4 mmol/L (3.5-5.5); Total Protein, Blood 6.3 g/dL (6.4-8.2)
--- NOTE | 2024-06-15 06:49 | NUR ---
Shift Summary Pt transferred to this unit from PCU. She arrived and was experiencing heavy anxiety, medicated per EMAR. Pt was able to fall asleep for most of the night. She woke up this AM feeling anxious again and was medicated. Pt states she needs nebulizer ampules before she can go home and last time she was incorrectly given cartidges. AOx4 and able to ambulate independelty in the room.
[2024-06-15 08:13] VITALS: BP 131/65
[2024-06-15] MEDS ORDERED: Calcitriol 0.25 MCG Cap PO SCH (09:00)
[2024-06-15] MEDS ORDERED: Azithromycin 250 MG Tab PO SCH (09:00)
[2024-06-15] MEDS ORDERED: Enoxaparin 40 MG/0.4 ML SYR SC SCH (09:00)
[2024-06-15] MEDS ORDERED: Ondansetron HCl 2 MG / ML 2ML Vial IV PRN (15:05)
[2024-06-15 15:07] VITALS: BP 140/73
--- NOTE | 2024-06-15 16:13 | NUR ---
Spiritual Care Visit. Pt. is resting but responds when I entere the room and introduce myself. Pt. displays evidence of both pain and exhaustion, almost unable to verbalize responses. Because of the Pts. discomfort this latin dance instructor kept the visit short. Pt. welcomed prayer. Prayed for Pt. Will remain avilable to the Pt.
--- NOTE | 2024-06-15 16:53 | NUR ---
SHIFT SUMMARY PT CONT WITH LEVEL OF CARE. PT A&O X4 COOPERATIVE WITH CARE. PT NOTED TO BE ANXIOUS PRN ATIVAN GIVEN THIS SHIFT WITH EFFECTIVENESS. PT C/O BEING NAUSATED PRN ORDER FOR ZOFRAN GIVEN WITH EFFECTIVENESS. RECIEVED NEW ORDER FOR UA CONT TO WAIT ON URINE SAMPLE FROM PT.
[2024-06-15 19:20] VITALS: BP 131/70
[2024-06-15 22:15] LABS: Appearance, Urine Clear (Clear); Bilirubin, Urine Neg (Neg); Blood, Urine 3+ (Neg); Color, Urine Yellow (P-Yellow); Glucose Qualitative, Urine 1+ (Neg); Ketones, Urine Neg (Neg); Leukocyte Esterase, Urine 2+ (Neg); Nitrite, Urine Neg (Neg); Protein, Urine 3+ (Neg); Urobilinogen, Urine NORM (Normal)
[2024-06-15 23:08] LABS: Bacteria Mod /hpf; Squamous Epithelial Cells Mod /hpf (Few)
[2024-06-16 03:11] VITALS: BP 141/70
--- NOTE | 2024-06-16 05:59 | NUR ---
Shift Summary Pt anxious at the start of shift, she started walking off the unit to go outside to her car. I advised her she is supposed to stay here on the unit but she would went anyways. After leaving twice for 'smoke breaks' at her car Brit the charge nurse warned her not leave anymore or she may be discharged. Pt became angry and yelled at her. After about 2300 pt slept well t/o the night only waking up for scheduled medications. She is AOx4, independent in the room. No breathing issues tonight.
[2024-06-16 06:23] LABS: BASOPHILS ABSOLUTE AUTO 0.03 K/mm3 (0.00-0.23); BASOPHILS PERCENT AUTO 0 % (0-2); EOSINOPHILS PERCENT AUTO 0 % (0-6); Hematocrit 35.7 % (33.0-51.0); Hemoglobin 11.9 g/dL (11.5-16.0); IMMATURE GRAN ABSOLUTE AUTO 0.18 K/mm3 (0.00-0.10); IMMATURE GRAN PERCENT AUTO 1 % (0-1); LYMPHOCYTES ABSOLUTE AUTO 0.63 K/mm3 (0.84-5.20); LYMPHOCYTES PERCENT AUTO 3 % (21-46); MONOCYTES ABSOLUTE AUTO 0.28 K/mm3 (0.16-1.47); MONOCYTES PERCENT AUTO 1 % (4-13); Mean Corpuscular HGB 30.4 pg (26.0-34.0); Mean Corpuscular HGB Conc 33.3 g/dL (31.5-36.5); Mean Corpuscular Volume 91 fL (80-100); Mean Platelet Volume 10.5 fL (9.1-12.4); NEUTROPHILS ABSOLUTE AUTO 18.47 K/mm3 (1.96-9.15); NEUTROPHILS PERCENT AUTO 94 % (41-73); Platelet Count 287 K/mm3 (150-400); RDW Coefficient Variation 12.4 % (11.7-14.2); RDW Standard Deviation 41.1 fL (35.1-46.3); Red Blood Cell Count 3.91 M/mm3 (3.80-5.20); White Blood Cell Count 19.59 K/mm3 (4.00-11.30)
[2024-06-16 06:43] LABS: Albumin, Blood 2.6 g/dL (3.4-5.0); Albumin/Globulin Ratio 0.8 (0.8-1.8); Bilirubin, Total 0.2 mg/dL (0.1-1.0); Bun/Creatinine Ratio 28.8 (12.0-20.0); Calcium, Blood 8.6 mg/dL (8.5-10.1); Creatinine, Blood 1.53 mg/dL (0.40-1.00); Globulin, Blood 3.2 g/dL (2.2-4.0); Potassium, Blood 4.8 mmol/L (3.5-5.5); Total Protein, Blood 5.8 g/dL (6.4-8.2)
[2024-06-16 07:18] VITALS: BP 144/77
[2024-06-16] MEDS ORDERED: Nicotine 21 MG PATCH TOP SCH (09:00)
[2024-06-16] MEDS ORDERED: AZIT250 PO (12:06)
--- NOTE | 2024-06-16 14:22 | NUR ---
PT AWAKE AT START OF SHIFT, DURING SHIFT REPORT, RECEIVING RT TX. PT ADMITTED FOR COPD EXAC. PER REPORT, PT OUT TO K FREQUENTLY AND LEAVING IN CAR WHEN GOING OUT. PT IN RM AT START OF SHIFT UNTIL JUST AFTER BREAKFAST. PT CALLED BACK TO WHEN DR PEREZ MADE ROUNDS. PT WANTING TO GO HOME. D/C ORDERS PLACED. TELE AND IV SITE D/C'D. PT UP TO SHOWER INDEPENDENTLY. D/C INSTRUCTIONS REVIEWED WITH PT. HARD SCRIPTS GIVEN FOR D/C PRESCRIPTION MEDICATIONS D/T COMPUTER DOWNTIME. PT LEFT WITH ALL BELONGINGS.
== END 2024-06-16 13:43 | disposition home or self-care (01) | DRG 191 ==
LOC: ER 07:31 → PCU 10:48 → MEDS 20:45 → ENPENDDIS 06-16 12:41 → MEDS 06-16 13:43
PROVIDERS: Family Medicine; Student in an Organized Health Care Education/Training Program; ADMIT Hospitalist
DX: J44.1 Chronic obstructive pulmonary disease with (acute) exacerbation (principal); I50.22 Chronic systolic (congestive) heart failure; R06.89 Other abnormalities of breathing; R74.01 Elevation of levels of liver transaminase levels; F17.210 Nicotine dependence, cigarettes, uncomplicated; M10.9 Gout, unspecified; N18.30 Chronic kidney disease, stage 3 unspecified; F15.10 Other stimulant abuse, uncomplicated; Z79.51 Long term (current) use of inhaled steroids; Z79.899 Other long term (current) drug therapy; Z90.89 Acquired absence of other organs; Z98.51 Tubal ligation status
CPT/HCPCS: 0241U; 36415; 71045; 76705; 80053; 81001; 82803; 84145; 84484; 85025; 87077; 87086; 87186; 93005; 93010; 94640; 94644; 94645; 94664; 94760; 96374; 99285-25; A9270; J0696; J1650; J2405; J2919

== ENCOUNTER 2025-03-12 13:39 | Inpatient (IN) | payer OTHER ==
[~2025-03-12] VITALS: Ht 160 cm; Wt 52.1 kg
[~2025-03-12 13:39] MED LIST changes: +AZIT250 PO; +TOPROL XL25 MG PO
[2025-03-12] MEDS ORDERED: Albuterol 2.5 MG/3 ML VIAL INH SCH (13:45)
[2025-03-12 13:50] LABS: Calcium, Ionized (POC) 1.17 mmol/L (1.10-1.46); Chloride (POC) 103 mmol/L (98-108); Creatinine (POC) 1.7 mg/dL (0.6-1.0); Glucose (ISTAT POC) 127 mg/dL (70-99); Hemoglobin (POC) 14.6 g/dL (12.0-16.0); Potassium (POC) 5.2 mmol/L (3.5-5.5); Sodium (POC) 137 mmol/L (135-148); Total CO2 (POC) 28 mmol/L (21-32)
[2025-03-12 14:06] LABS: BASOPHILS ABSOLUTE AUTO 0.09 K/mm3 (0.00-0.23); BASOPHILS PERCENT AUTO 1 % (0-2); EOSINOPHILS PERCENT AUTO 3 % (0-6); Hematocrit 43.5 % (33.0-51.0); Hemoglobin 13.6 g/dL (11.5-16.0); IMMATURE GRAN ABSOLUTE AUTO 0.03 K/mm3 (0.00-0.10); IMMATURE GRAN PERCENT AUTO 0 % (0-1); LYMPHOCYTES ABSOLUTE AUTO 6.98 K/mm3 (0.84-5.20); LYMPHOCYTES PERCENT AUTO 45 % (21-46); MONOCYTES ABSOLUTE AUTO 1.32 K/mm3 (0.16-1.47); MONOCYTES PERCENT AUTO 9 % (4-13); Mean Corpuscular HGB Conc 31.3 g/dL (31.5-36.5); Mean Corpuscular Volume 99 fL (80-100); Mean Platelet Volume 10.6 fL (9.1-12.4); NEUTROPHILS ABSOLUTE AUTO 6.45 K/mm3 (1.96-9.15); NEUTROPHILS PERCENT AUTO 42 % (41-73); Platelet Count 321 K/mm3 (150-400); RDW Coefficient Variation 11.6 % (11.7-14.2); RDW Standard Deviation 42.6 fL (35.1-46.3); Red Blood Cell Count 4.39 M/mm3 (3.80-5.20); White Blood Cell Count 15.37 K/mm3 (4.00-11.30)
[2025-03-12] MEDS ORDERED: CefTRIAXone Sodium 1,000 MG in NS 100 ML IV ONE (14:15)
[2025-03-12 14:22] LABS: Base Excess Venous -7.5 mmol/L; Bicarbonate Venous 17.1 mmol/L (24.0-30.0); PCO2 Venous 70.5 mmHg (38-42); pH Blood Venous 7.11 (7.34-7.37)
[2025-03-12 14:29] LABS: Albumin/Globulin Ratio 0.8 (0.8-1.8); Bilirubin, Total 0.2 mg/dL (0.1-1.0); Bun/Creatinine Ratio 21.7 (12.0-20.0); Calcium, Blood 8.7 mg/dL (8.5-10.1); Creatinine, Blood 1.61 mg/dL (0.40-1.00); Globulin, Blood 3.9 g/dL (2.2-4.0); Potassium, Blood 5.2 mmol/L (3.5-5.5); Total Protein, Blood 6.9 g/dL (6.4-8.2)
[2025-03-12 14:31] LABS: Base Excess Venous -1.2 mmol/L; Bicarbonate Venous 21.9 mmol/L (24.0-30.0); PCO2 Venous 67.4 mmHg (38-42)
[2025-03-12 14:32] LABS: pH Blood Venous 7.21 (7.34-7.37)
[2025-03-12 17:00] VITALS: BP 118/69
[2025-03-12] MEDS ORDERED: Furosemide 10 MG/ML 4ML Vial IV SCH (17:00)
[2025-03-12] MEDS ORDERED: MethylPREDNISolone Sod Succ 125 MG Vial IV SCH (17:00)
[2025-03-12] MEDS ORDERED: Ipratropium/Albuterol SulF 2.5-0.5MG/3 ML Amp INH SCH (17:00)
[2025-03-12 18:10] VITALS: BP 131/75
--- NOTE | 2025-03-12 18:31 | NUR ---
TELE UPDATE PATIENT CAME UP FROM ER AND TELE SHOWS INVERTED T WAVES. HOSPITALIST AWARE AND EXPEXTED DUE TO HYPOXIA NO NEED FOR REPEAT EKG AT THIS TIME.
--- NOTE | 2025-03-12 19:09 | NUR ---
ADMISSION/EOS: PATIENT IS A/O 1-2 UNABLE TO MAKE NEEDS KNOWN, CAN MOVE EXTREMES AND FOLLOW COMMANDS AT TIMES, SHE IS EXTREMELY WEAK, WEARING THE BIPAP 12/8 AT 40% RR 18-24 AND HIGHER IF ROLLING OR REPOSITIONING, VSS AFEBRILE SPO2 >94%. MEPILEX PLACED TO BOTTOM FOR BLANCHABLE Q2 REPOSITIONS SCD'S IN THE ROOM. NO ACTIVE SIGNS OF DISTRESS BED ALARM FOR SAFETY. PUREWICK IN PALCED PATIENT WAS SATURATED WITH URINE ON ARRIVAL. BEDBATH PROVIDED PERSONALLY BELONGINS IN THE CLOSET. PROVIDER DECLINED NEED FOR EKG, POTENTIAL T WAVE INVERSION, NOT NEEDED POTENTIALLY FROM HYPOXEMIA. NO FURHTER ACUTE CONCERNS THAT WERE NOT ADDRESSED.
[2025-03-12 19:49] VITALS: BP 127/70
[2025-03-12] MEDS ORDERED: Sennosides 8.6 MG Tab PO SCH (21:00)
[2025-03-12] MEDS ORDERED: Docusate Sodium 100 MG Cap PO SCH (21:00)
[2025-03-12] MEDS ORDERED: LORazepam 2 MG/ML 1ML Injection IV PRN (23:45)
[2025-03-13] VITALS (8 sets, daily range): BP systolic 115–128; BP diastolic 54–88
[2025-03-13 03:43] LABS: Base Excess Venous 2.2 mmol/L; Bicarbonate Venous 26.2 mmol/L (24.0-30.0); PCO2 Venous 40.2 mmHg (38-42); pH Blood Venous 7.43 (7.34-7.37)
[2025-03-13 04:13] LABS: Hematocrit 37.6 % (33.0-51.0); Hemoglobin 12.2 g/dL (11.5-16.0); Mean Corpuscular HGB Conc 32.4 g/dL (31.5-36.5); Mean Platelet Volume 10.7 fL (9.1-12.4); Platelet Count 257 K/mm3 (150-400); RDW Coefficient Variation 11.5 % (11.7-14.2); RDW Standard Deviation 39.1 fL (35.1-46.3); Red Blood Cell Count 4.07 M/mm3 (3.80-5.20)
[2025-03-13 04:15] LABS: Mean Corpuscular Volume 92 fL (80-100)
[2025-03-13 04:38] LABS: Bun/Creatinine Ratio 27.1 (12.0-20.0); Calcium, Blood 8.3 mg/dL (8.5-10.1); Creatinine, Blood 1.55 mg/dL (0.40-1.00); Potassium, Blood 4.1 mmol/L (3.5-5.5)
--- NOTE | 2025-03-13 04:58 | NUR ---
SHIFT SUMMARY PT A&O X4, ANXIOUS AT TIMES. HR IN THE 80'S, SINUS RHYTHM. SHE DENIES CP/PRESSURE, NUMB/TINGLING, SBP STABLE. O2 AT 95% ON RA. PT DENIES WEARING OXYGEN AT HOME. PT REFUSED BIPAP T/O THE NIGHT. SHE DENIES ANY SOB AT THIS TIME. REPEAT VBG COMPLETED THIS AM. PT UP TO [facility] T/O SHIFT AND TOLERATING WELL. PT RESTING IN BED AT THIS TIME. SHE DENIES ANY QUESTIONS OR CONCERNS AT THIS TIME. WILL MONITOR PT AND REPORT TO ONCOMING RN.
[2025-03-13] MEDS ORDERED: Pantoprazole Sodium 20 MG Tab PO SCH (06:00)
[2025-03-13] MEDS ORDERED: Enoxaparin 30 MG/0.3 ML SYR SC SCH (09:00)
[2025-03-13] MEDS ORDERED: Calcitriol 0.25 MCG Cap PO SCH (09:00)
[2025-03-13] MEDS ORDERED: Metoprolol Succinate 25 MG TABCR PO SCH (09:00)
[2025-03-13] MEDS ORDERED: Lisinopril 5 MG Tab PO SCH (09:00)
--- NOTE | 2025-03-13 11:52 | NUR ---
HAND OFF PATIENT AOX4 ABLE TO MAKE NEEDS KNOWN. SHE SAYS SHE FEELS MUCH BETTER THAN SHE DID YESTERDAY. HER VITALS ARE STABLE AND SHE IS SATURATING GREATER THAN 92% ON ROOM AIR. SHE DENIES CHEST PAIN AND SHE DENIES SOB AT REST. SHE IS TOLERATING HER FOOD AND SHE IS ABLE TO VOID ON THE BEDSIDE COMMODE WITH ASSISTANCE. HER FINGERS REMAIN DUSKY BUT HAVE LESS THAN 3 SEC CAP REFILL. REPORT WAS GIVEN TO ANOTHER DAY SHIFT NURSE FOR HANDOFF ALL QUESTIONS ANSWERED.
--- NOTE | 2025-03-13 11:53 | NUR ---
ASSUMED CARE NOTE ASSUMED CARE OF PATIENT AT 1145, PATING IN BED, ABLE TO MAKE NEEDS KNOWN. VITAL SIGNS OBTAINED, WNL. PATIENT REQUESTED BEEF BROTH WHICH WAS PROVIDED. PATIENT ON ROOM AIR, SPO2 REMAINS ABOVE 90%. WILL CONTINUE TO MONITOR.
[2025-03-13] MEDS ORDERED: Naloxone HCl 0.4MG / ML 1ML Vial IV ONE (14:20)
--- NOTE | 2025-03-13 14:43 | NUR ---
CHANGE IN STATUS: PATIENT SPO2 ALARMED DOWNED TO THE 70'S AFTER BEING STABLE ON RA ALL DAY. RECENT VISITOR AT THE BEDISDE. REQUIRED 2L TO MAINTAIN SPO2 >88%, RR WHERE ERRATIC BUT ONLY AMOUNTED TO 8 AFTER A FULL COUNT OF 1 MINUTE. INFORMED PROVIDER, HISTORY OF SUBSTANCE USE AND CHANGE IN STATUS. DR. KEE ORDERED A DOSE OF NARCAN, PLACED BY CHARGE. ONCE GIVEN TO THE PATIENT HAD IMMEDIATE CHANGE IN RESPIRATORY STATUS >14 RR. AGITATED. HUMAN RESOURCES GENERALIST EDUCATED AND INFORMED PATIENT ABOUT SECURING BELONGINGS IN LOCKED CUPBOARD. ADDITIONALLY, NO VISOITORS. PATIENT EDUCATED ON WHY AND NO SEARCHING, JUST SECUREMENT OF BELONGINGS. DR. LIRIANO ALSO ORDERED URINE TOXICOLOGY AND CHANGE BACK TO PCU STATUS. NO OTHER ACUTE CONCERNS, PRIMARY RN INFORMED OF SITUATION.
[2025-03-13] MEDS ORDERED: Empagliflozin 10 MG TAB PO SCH (16:00)
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
[2025-03-13 19:14] LABS: U Amphetamine Screen DETECTED; U Barbituate Screen Not Detected; U Benzodiazapine Screen Not Detected; U Buprenorphine Screen Not Detected; U Cannabinoids Screen Not Detected; U Cocaine Screen Not Detected; U Methadone Screen Not Detected; U Methamphetamine Screen DETECTED; U Opiates Screen Not Detected; U Oxycodone Screen Not Detected; U Phencyclidine Screen Not Detected
--- NOTE | 2025-03-13 22:53 | NUR ---
ASSUMPTION OF CARE PT A&O X4. PT IRRITABLE/ANGRY, BUT COOPERATIVE TO CARE. HR IN THE 80'S, SINUS RHYTHM, BBB, AND HAS SOME T WAVE INVERSION. SHE DENIES CP/PRESSURE, NUMB/TINGLING, SBP STABLE. O2 >90% ON RA-2L. PT DESATS OCASIONALLY BUT RECOVERS WITH DEEP BREATHING AND OXYGEN. SHE HAS SOME SOB WITH EXERTION. PT HAD HAD SUPERVISED VISTOR FROM CAREGIVER FOR APPROX 10 MINUTES WITH THIS RN, ELECTROCARDIOGRAPH TECHNICIAN AND SECURITY IN ROOM. PTS BELONGINGS LOCKED IN CABINENT OUTSIDE ROOM. PT RESTING IN BED AT THIS TIME. CALL LIGHT IN REACH. WILL MONITOR PT.
[2025-03-14 03:32] VITALS: BP 132/57
[2025-03-14 04:34] LABS: Hematocrit 34.9 % (33.0-51.0); Hemoglobin 11.5 g/dL (11.5-16.0); Mean Corpuscular HGB 30.2 pg (26.0-34.0); Mean Corpuscular Volume 92 fL (80-100); Mean Platelet Volume 10.8 fL (9.1-12.4); Platelet Count 284 K/mm3 (150-400); RDW Coefficient Variation 11.9 % (11.7-14.2); RDW Standard Deviation 39.9 fL (35.1-46.3); Red Blood Cell Count 3.81 M/mm3 (3.80-5.20); White Blood Cell Count 16.35 K/mm3 (4.00-11.30)
[2025-03-14 05:10] LABS: Bun/Creatinine Ratio 35.8 (12.0-20.0); Calcium, Blood 8.3 mg/dL (8.5-10.1); Creatinine, Blood 1.76 mg/dL (0.40-1.00); Potassium, Blood 4.1 mmol/L (3.5-5.5)
--- NOTE | 2025-03-14 05:53 | NUR ---
SHIFT SUMMARY PT A&O X4, PT ANXIOUS AT TIMES, BUT LESS IRRITABLE THEN AT THE START OF SHIFT. SHE IS COOPERATIVE TO CARE. HR IN THE 80'S, SR, BBB, WITH T WAVE INVERSION. SHE DENIES ANY CP/PRESSURE, NUMB/TINGLING, SBP STABLE. O2 >90% ON RA-2L VIA NC. PT TAKES OFF NC SHE DESIRES, SHE THEN PUTS IT BACK ON IF SHE HEARS THE MONITOR BEEPING OR IF THIS RN GOES INTO ROOM. PT UP TO BSC WITH NURSE ASSIST. PT BELONGINGS LOCKED IN CABINENT OUTSIDE ROOM. PT HAD A + TOX SCREEN, VISITORS NO LONGER ALLOWED, PT ADVISED AND EDUCATED ON THE PURPOSE OF THIS. NO ACUTE CHANGES T/O SHIFT. CALL LIGHT IN REACH. WILL MONITOR PT AND REPORT TO ONCOMNG RN.
[2025-03-14 07:37] VITALS: BP 119/62
[2025-03-14] MEDS ORDERED: JARDIANCE10 MG PO (09:55)
[2025-03-14] MEDS ORDERED: Furosemide 40 MG Tab PO SCH (10:00)
[2025-03-14 11:54] VITALS: BP 121/70
--- NOTE | 2025-03-14 15:43 | NUR ---
DISCHARGE/SHIFT SUMMARY: PT A&O X4. PLEASANT AND COOPERATIVE WITH CARE THIS SHIFT. SINUS RHYTHM T/O SHIFT. PT ON 2L THIS AM. ATTEMPTED RA WHERE PT DROPPED TO MID TO HIGH 80'S. SPOKE WITH DR. KEE ABOUT HOME 02 EVAL. 3L NC ORDERED TO GO HOME. JOSH FROM [facility] DROPPED OFF 02 PRIOR TO D/C. MEDICATIONS FAXED TO [facility]. LAC AND RFA IV REMOVED W/O COMPLICATIONS. TELE SENT BACK. ALL BELONGINGS SENT WITH PT. PT AWARE TO MAKE FOLLOW-UP APPOINTMENT WITH DR. WANG. NO QUESTIONS AT TIME OF D/C.
== END 2025-03-14 15:37 | disposition home or self-care (01) | DRG 291 ==
LOC: ER 13:39 → ERHOLD 16:01 → PCU 16:01
PROVIDERS: Emergency Medicine; Student in an Organized Health Care Education/Training Program; ADMIT Internal Medicine
PROC: 5A09357 Assistance with Respiratory Ventilation, Less than 24 Consecutive Hours, Continuous Positive Airway Pressure (ICD-10-PCS; principal; 2025-03-12)
DX: I13.0 Hypertensive heart and chronic kidney disease with heart failure and stage 1 through stage 4 chronic kidney disease, or unspecified chronic kidney disease (principal); I50.23 Acute on chronic systolic (congestive) heart failure; J18.9 Pneumonia, unspecified organism; J96.01 Acute respiratory failure with hypoxia; J96.02 Acute respiratory failure with hypercapnia; I50.22 Chronic systolic (congestive) heart failure; J44.1 Chronic obstructive pulmonary disease with (acute) exacerbation; J44.0 Chronic obstructive pulmonary disease with (acute) lower respiratory infection; E87.20 Acidosis, unspecified; N18.30 Chronic kidney disease, stage 3 unspecified; M10.9 Gout, unspecified; F15.10 Other stimulant abuse, uncomplicated; I44.7 Left bundle-branch block, unspecified; F17.210 Nicotine dependence, cigarettes, uncomplicated; D72.829 Elevated white blood cell count, unspecified; Z90.89 Acquired absence of other organs; Z98.51 Tubal ligation status; Z79.51 Long term (current) use of inhaled steroids; Z79.899 Other long term (current) drug therapy; Z79.811 Long term (current) use of aromatase inhibitors; Z99.89 Dependence on other enabling machines and devices
CPT/HCPCS: 36415; 71045; 80047; 80048; 80053; 82803; 83605; 84145; 84484; 85014; 85025; 85027; 87040; 94640; 94644; 94660; 94664; 94761; 94762; 96365; 99285-25; A9270; J0696; J1650; J1940; J2310; J2470; J2919

== ENCOUNTER → 2025-09-24 | Outpatient (CLI) | payer OTHER ==
[~2025-09-24] MED LIST changes: +JARDIANCE10 MG PO
== END | disposition home or self-care (01) ==
LOC: LAB 13:45 → LAB SHORT 13:45
DX: R30.0 Dysuria (principal)
CPT/HCPCS: 87077; 87086; 87186